=== PATIENT | male | born 1980 | race American Indian/Alaskan Native ===

== ENCOUNTER 2020-12-08 09:33 | Outpatient (REF) | payer BC, SELFPAY ==
[2020-12-08 10:17] LABS: MANUAL DIFF FLAG NO
[2020-12-08 10:36] LABS: Basophils Percent Auto 0.4 % (0-2); Eosinophils Absolute Auto 0.1 X10*3/uL (0.0-0.4); Eosinophils Percent Auto 1.4 % (0-4); Hematocrit 48.1 % (42-52); Hemoglobin 16.1 g/dl (14.0-18.0); Imm Gran Abs Auto 0.02 X10*3/uL (0.00-0.03); Imm Gran Pct Auto 0.4 % (0.0-0.4); Lymphocytes Absolute Auto 2.2 X10*3/uL (1.2-4.9); Lymphocytes Percent Auto 39.1 % (20-40); Mean Corpuscular HGB Conc 33.5 g/dl (31.0-36.0); Mean Corpuscular Hemoglobin 28.6 pg (27.0-33.0); Mean Corpuscular Volume 85.6 fL (80-98); Monocytes Absolute Auto 0.5 X10*3/uL (0.1-1.2); Monocytes Percent Auto 8.4 % (2-11); Neutrophils Absolute Auto 2.9 X10*3/uL (2.0-8.3); Neutrophils Percent Auto 50.3 % (45-73); Platelet Count 244 X10*3/uL (160-400); Red Blood Count 5.62 X10*6/uL (4.60-5.80); Red Cell Distribution Width 12.7 % (11.0-16.0); White Blood Count 5.7 X10*3/uL (4.8-10.8)
[2020-12-08 10:50] LABS: Alanine Aminotransferase 32 U/L (0-40); Albumin Level 4.6 g/dL (3.5-5.0); Alkaline Phosphatase 88 U/L (39-117); Anion Gap 8 (12-20); Aspartate Amino Transferase 24 U/L (5-37); Bilirubin Total 0.7 mg/dL (0.0-1.0); Blood Urea Nitrogen 18 mg/dL (9-16); Carbon Dioxide 30 mmol/L (22-29); Chloride 104 mmol/L (96-108); Cholesterol 206 mg/dL; Estimated Glomerular Filt Rate > 60; Glucose Random 97 mg/dL (60-115); HDL Cholesterol 41 mg/dL; LDL Cholesterol Calculated 108 mg/dl; Potassium 4.3 mmol/l (3.3-5.1); Sodium 138 mmol/L (135-145); Total Protein 7.4 g/dL (6.5-8.0); Triglycerides 285 mg/dL
[2020-12-08 11:14] LABS: Thyroid Stimulating Hormone 2.51 uIU/mL (0.32-4.0)
== END 2020-12-08 09:34 | disposition home or self-care (01) ==
LOC: HO.LAB 09:33
PROVIDERS: PCP Internal Medicine; Visit Provider Internal Medicine
DX: Z00.00 Encounter for general adult medical examination without abnormal findings (principal); E03.8 Other specified hypothyroidism; E78.2 Mixed hyperlipidemia; M54.5 Low back pain
CPT/HCPCS: 36415; 80053; 80061; 84443; 85025

== ENCOUNTER 2021-07-24 09:24 | Outpatient (REF) | payer BC, SELFPAY ==
[2021-07-24 10:31] LABS: Alanine Aminotransferase 29 U/L (0-40); Albumin Level 4.2 g/dL (3.5-5.0); Alkaline Phosphatase 83 U/L (39-117); Anion Gap 11 (12-20); Aspartate Amino Transferase 23 U/L (5-37); Bilirubin Total 0.9 mg/dL (0.0-1.0); Blood Urea Nitrogen 14 mg/dL (9-16); Calcium 8.9 mg/dL (8.4-10.2); Carbon Dioxide 28 mmol/L (22-29); Chloride 104 mmol/L (96-108); Cholesterol 188 mg/dL; Estimated Glomerular Filt Rate > 60; Glucose Random 99 mg/dL (60-115); HDL Cholesterol 37 mg/dL; LDL Cholesterol Calculated 104 mg/dl; Potassium 3.9 mmol/L (3.3-5.1); Sodium 139 mmol/L (135-145); Total Protein 6.8 g/dL (6.5-8.0); Triglycerides 238 mg/dL
[2021-07-24 10:51] LABS: Thyroid Stimulating Hormone 2.71 uIU/mL (0.32-4.0)
== END 2021-07-24 09:25 | disposition home or self-care (01) ==
LOC: HO.LAB 09:24
PROVIDERS: PCP Internal Medicine; Visit Provider Internal Medicine
DX: E03.8 Other specified hypothyroidism (principal); E78.2 Mixed hyperlipidemia; M54.5 Low back pain; M62.81 Muscle weakness (generalized)
CPT/HCPCS: 36415; 80053; 80061; 84443

== ENCOUNTER 2021-10-16 15:17 | Outpatient (REF) | payer BC, OTHER, SELFPAY ==
[2021-10-16 16:58] LABS: Vitamin B12 801 pg/mL (200-900)
[2021-10-21 12:22] LABS: Testosterone, Total 747 ng/dL (250-1100)
== END 2021-10-16 15:18 | disposition home or self-care (01) ==
LOC: HO.LAB 15:17
PROVIDERS: PCP Internal Medicine; Visit Provider Internal Medicine
DX: E78.1 Pure hyperglyceridemia (principal); G56.03 Carpal tunnel syndrome, bilateral upper limbs; N52.9 Male erectile dysfunction, unspecified
CPT/HCPCS: 36415; 82607; 84403

== ENCOUNTER 2021-11-07 10:03 | Outpatient (REF) | payer BC, OTHER, SELFPAY ==
[2021-11-07 11:57] LABS: COVID-19 Test Negative (Negative)
== END 2021-11-07 10:04 | disposition home or self-care (01) ==
LOC: HO.LAB 10:03
PROVIDERS: Visit Provider Internal Medicine
DX: Z20.822 Contact with and (suspected) exposure to COVID-19 (principal)
CPT/HCPCS: 36415; 87635; C9803

== ENCOUNTER 2022-08-27 16:28 | Outpatient (REF) | payer OTHER, SELFPAY ==
[2022-08-27 16:36] LABS: MANUAL DIFF FLAG NO
[2022-08-27 17:21] LABS: Basophils Percent Auto 0.5 % (0-2); Eosinophils Absolute Auto 0.1 X10*3/uL (0.0-0.4); Eosinophils Percent Auto 1.5 % (0-4); Hematocrit 42.3 % (42.0-52.0); Hemoglobin 15.1 g/dl (14.0-18.0); Imm Gran Abs Auto 0.01 X10*3/uL (0.00-0.03); Imm Gran Pct Auto 0.2 % (0.0-0.4); Lymphocytes Percent Auto 33.2 % (20-40); Mean Corpuscular HGB Conc 35.7 g/dl (31.0-36.0); Mean Corpuscular Hemoglobin 29.6 pg (27.0-33.0); Mean Corpuscular Volume 82.9 fL (80.0-98.0); Mean Platelet Volume 11.3 fL (9.4-12.4); Monocytes Absolute Auto 0.5 X10*3/uL (0.1-1.2); Monocytes Percent Auto 8.8 % (2-11); Neutrophils Absolute Auto 3.3 x10*3/uL (2.0-8.3); Neutrophils Percent Auto 55.8 % (45-73); Platelet Count 239 X10*3/uL (160-400); Red Cell Distribution Width 12.7 % (11.0-16.0); White Blood Count 5.9 X10*3/uL (4.8-10.8)
[2022-08-27 18:15] LABS: Alanine Aminotransferase 24 U/L (0-40); Albumin Level 4.4 g/dL (3.5-5.0); Alkaline Phosphatase 101 U/L (39-117); Anion Gap 17 (12-20); Aspartate Amino Transferase 21 U/L (5-37); Bilirubin Total 0.3 mg/dL (0.0-1.0); Blood Urea Nitrogen 21 mg/dL (9-16); Carbon Dioxide 23 mmol/L (22-29); Chloride 105 mmol/L (96-108); Estimated Glomerular Filt Rate > 60; Glucose Random 81 mg/dL (60-115); Lipase 39 U/L (8-78); Potassium 4.2 mmol/L (3.3-5.1); Sodium 141 mmol/L (135-145); Total Protein 7.2 g/dL (6.5-8.0)
== END 2022-08-27 16:29 | disposition home or self-care (01) ==
LOC: HO.LAB 16:28
PROVIDERS: Visit Provider Internal Medicine
DX: Z00.00 Encounter for general adult medical examination without abnormal findings (principal); E78.1 Pure hyperglyceridemia; M25.561 Pain in right knee
CPT/HCPCS: 36415; 80053; 83690; 85025

== ENCOUNTER 2022-09-05 08:50 | Outpatient (REF) | payer OTHER, SELFPAY | END 2022-09-05 08:51 | disposition home or self-care (01) | LOC: HO.HOSX 08:50 | PROVIDERS: Visit Provider Physician Assistant | DX: Z13.89 Encounter for screening for other disorder (principal) ==

== ENCOUNTER 2022-11-29 07:31 | Outpatient (REF) | payer OTHER, SELFPAY ==
--- NOTE | ~2022-11-29 | XR_ITS ---
EXAMINATION: 1. AP STANDING VIEW OF THE KNEES. 2. RIGHT KNEE. CLINICAL INFORMATION: Pain in the right knee COMPARISON: Right knee 09/03/2022 TECHNIQUE: 1. AP standing view of both knees. 2. Right knee. 2 views FINDINGS: 1. Right knee. Minimal periarticular spurs of the femur at the medial femoral tibial joint. The femoral tibial joint space is slightly narrowed at the medial compartment relative to the lateral. The patellofemoral joint is normal. No bone erosion. No soft tissue calcification. No joint effusion. 2. Left knee. Slight narrowing of the medial femoral tibial joint. The bone spur or bone erosion. No soft tissue calcification. No joint effusion. XR/XR knee standing BI IMPRESSION: 1. Right knee. No acute abnormality. Mild degenerative change of the medial femoral tibial joint. 2. Left knee. Slight narrowing of the medial femoral tibial joint. No acute abnormality.
--- NOTE | ~2022-11-29 | XR_ITS ---
EXAMINATION: 1. AP STANDING VIEW OF THE KNEES. 2. RIGHT KNEE. CLINICAL INFORMATION: Pain in the right knee COMPARISON: Right knee 09/03/2022 TECHNIQUE: 1. AP standing view of both knees. 2. Right knee. 2 views FINDINGS: 1. Right knee. Minimal periarticular spurs of the femur at the medial femoral tibial joint. The femoral tibial joint space is slightly narrowed at the medial compartment relative to the lateral. The patellofemoral joint is normal. No bone erosion. No soft tissue calcification. No joint effusion. 2. Left knee. Slight narrowing of the medial femoral tibial joint. The bone spur or bone erosion. No soft tissue calcification. No joint effusion. XR/XR knee RT 2V IMPRESSION: 1. Right knee. No acute abnormality. Mild degenerative change of the medial femoral tibial joint. 2. Left knee. Slight narrowing of the medial femoral tibial joint. No acute abnormality.
== END 2022-11-29 07:32 | disposition home or self-care (01) ==
LOC: HO.HOSX 07:31
PROVIDERS: Visit Provider Physician Assistant
DX: M22.42 Chondromalacia patellae, left knee (principal); M22.41 Chondromalacia patellae, right knee
CPT/HCPCS: 20610; 73560; 73565; 99202; J1040

== ENCOUNTER 2023-01-02 10:00 | Outpatient (RCR) | payer OTHER, SELFPAY ==
--- NOTE | 2023-01-02 15:06 | MHC.PT.OD ---
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 Pt reports having to leave early today due to personal conflict. Pain Score and Location: Objective Flowsheet: Tests & Measures LE worse than L. Exercises Seated on upright bike for stationary AROM warmup x 10 level 3.5 Hill climb Standing mini wall squat with green band around thigh with med ball chest press combo with 2000 gram ball, TAC march with hip abduction combo x 2 sets 10R, hookying bridge with GTB x 2 sets 10R, SL hip abduction with green theraband around thigh x 2 sets 10R. Held Denise taping today due to pants not having shorts today. Would benefit from trial education for self application next visit due to report of short term relief with use. self care using roller bar for STM to quadriceps>HS> calf musculature Modalities Assessment: 01/02/23 Pt has attended 7 PT to sessions to date since start of care on 12/09/22. Pt has been initiated in open chain strengthening exercises with limited tolerance for progression towards CKC tasks (increased L medial knee joint pain reported day following not during visit). He reports previous history of medial meniscal surgery years ago and reports ongoing sx along medial joint line. Pt exhibits (+) lateral tracking of the patella of L knee and was trialed with Denise taping with some term relief reported. Pt is very challenged with a hip hinge/functional squat with posterior LOB noted. He has been educated in the benefit of improving his proximal hip/core strength to ease his knee pains and improve his dynamic stability. He has been educated in the impact of footwear and avoiding knee hyperextension on the L>R LE with special awareness of avoiding shear/twisting forces to the knee. He has been educated/encouraged to use a pad under his knee if having to kneel for any period of time. He denies catch with ROM and reports some sx with stair climbing after its already been sore. Pt reports history of R proximal HS strain as a young adult, presents with physical infarct to R lateral proximal quadriceps, and is weaker in his R>L LE proximal hip. Pt has been compliant in hip flexor/quadriceps strengthening tasks. Pt has difficulty stabilizing on his L LE and may benefit from MRI in future should sx persist upon completion of PT. His ROM on the L>R is WFL however pt's biggest complaint today is that he has ongoing sx in the medial aspect of his L knee. He has been educated that physical therapy is going to take time to build the strength (baseline sedentary lifestyle with lack of exercise regimen). Expresses goal of wanting to be able to play soccer with this children. He has been issued written HEP in effort to first address tightness psoas>quariceps regions, but also build core/hip knee strengthening. Pt very challenged with slow pace pre gait toe tap in L SLS. 12/30/22: Pt challenged with standing toe taps and stabilization on the L LE. Pt unable to hip hinge without posterior LOB. Time spent educating patient about hip hinge/ posterior squat. 12/23/22: Good stretch observed with kneeling psoas and prone quad stretch with strap. 12/16/22 Sx verbalized L medial joint line walking olimpia the office, reviewed joint protection avoidance shear forces, avoiding stress, benefit icing. Pt verbalized relief of sx post icing. Encouraged AAROM/AROM icing to tolerance. 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 Pt expressing history of previous R quad injury as a teen> later reports hx R HS strain. 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 Pt would benefit from attending skilled PT services at a frequency of 2x/week x 4 weeks to address impairments, implement HEP, and restore functional mobility tolerance to improve tolerance for dynamic activities including recreational sports play with his children. Pt denies instability or buckling of the knee but does report previous use of L knee brace and trial of taping which he stated did help him. Pt expresses history of receiving a cortisone injection (via lateral aspect of L knee) with no significant change reported. PT Plan: 2x/week x 4 weeks Short Term Goals: 1. Strength R hip abd 5/5. (IR: R 4-/5 compensation with R hip flexor.). 2. Activate strength core stabilizers by one grade IR: poor abdominal recruitment/control with ADLS/IADLS). 3. Strength hip ext to 4+/5 B. 4. Strength SLR 5/5 B. 5. Complete walk<>jog program sx </2/10 L>R Knee. Halfway Goals: 1. I HEP. 2. Demonstrate functional squat 3:3 trials with no evidence of retropulsion. (IR: losing balance backwards). 3. Jog 10 minutes with sx <2/10 L>R knee. 4. SLS 10 seconds L>R LE. Electronically signed by: Agatha Pantoja, PT, DPT
== END 2023-12-11 08:31 | disposition home or self-care (01) ==
LOC: HO.PTWFD 10:00
PROVIDERS: PCP Internal Medicine; Visit Provider Physician Assistant
DX: M22.41 Chondromalacia patellae, right knee (principal); M22.42 Chondromalacia patellae, left knee
CPT/HCPCS: 97110; 97140; 97161; 97535

== ENCOUNTER → 2023-01-13 13:22 | Outpatient (BNVA) | payer OTHER, SELFPAY | PROVIDERS: PCP Internal Medicine; Visit Provider Physician Assistant | DX: M22.41 Chondromalacia patellae, right knee (principal); M22.42 Chondromalacia patellae, left knee; M23.91 Unspecified internal derangement of right knee; M23.92 Unspecified internal derangement of left knee | CPT/HCPCS: 99212 ==

== ENCOUNTER 2023-01-28 19:34 | Outpatient (REF) | payer OTHER, SELFPAY ==
--- NOTE | ~2023-01-28 | MR_ITS ---
EXAMINATION: MR KNEE WITHOUT CONTRAST, LEFT CLINICAL INFORMATION: Chondromalacia patella. COMPARISON: Radiographs 11/05/2022, TECHNIQUE: MRI of the knee without contrast was performed using routine sequences on a high-field scanner. FINDINGS: MENISCI: Medial Meniscus: Ill-defined undersurface tearing of the posterior horn extending to the inner margin and peripheral undersurface of the meniscal body. Lateral Meniscus: Intact. LIGAMENTS: Cruciate: Intact. Collateral: Intact. EXTENSOR MECHANISM: Intact. ARTICULAR CARTILAGE/BONE: Patellofemoral Compartment: Normal. Medial Compartment: Minimal cartilage thinning and small marginal osteophytes. Lateral Compartment: Normal. JOINT FLUID AND BURSAE: Small joint effusion. MR/MR knee LT wo con IMPRESSION: 1. Ill-defined undersurface tearing of the posterior horn of the medial meniscus extending to the inner margin and peripheral undersurface of the meniscal body. 2. Mild medial compartment osteoarthritis with a small joint effusion
== END 2023-01-28 19:35 | disposition home or self-care (01) ==
LOC: HO.MRI 19:34
PROVIDERS: PCP Internal Medicine; Visit Provider Physician Assistant
DX: M22.42 Chondromalacia patellae, left knee (principal); M22.41 Chondromalacia patellae, right knee
CPT/HCPCS: 73721

== ENCOUNTER → 2023-02-17 11:36 | Outpatient (BNVA) | payer OTHER, SELFPAY | PROVIDERS: PCP Internal Medicine; Visit Provider Physician Assistant | DX: S83.242A Other tear of medial meniscus, current injury, left knee, initial encounter (principal); X58.XXXA Exposure to other specified factors, initial encounter; Y93.9 Activity, unspecified; Y92.9 Unspecified place or not applicable; Y99.8 Other external cause status; M17.12 Unilateral primary osteoarthritis, left knee; M25.462 Effusion, left knee | CPT/HCPCS: 99212 ==

== ENCOUNTER 2023-02-18 08:36 | Outpatient (REF) | payer OTHER, SELFPAY ==
[2023-02-18 09:43] LABS: Cholesterol 225 mg/dL; HDL Cholesterol 37 mg/dL; LDL Cholesterol Calculated 134 mg/dl; Triglycerides 272 mg/dL
== END 2023-02-18 08:37 | disposition home or self-care (01) ==
LOC: HO.LAB 08:36
PROVIDERS: PCP Internal Medicine; Visit Provider Internal Medicine
DX: E78.2 Mixed hyperlipidemia (principal); I10 Essential (primary) hypertension; M70.50 Other bursitis of knee, unspecified knee
CPT/HCPCS: 36415; 80061; 84443

== ENCOUNTER → 2023-04-02 13:12 | Outpatient (BNVA) | payer OTHER, SELFPAY | PROVIDERS: PCP Internal Medicine; Visit Provider Physician Assistant | DX: M22.41 Chondromalacia patellae, right knee (principal); M22.42 Chondromalacia patellae, left knee; M23.90 Unspecified internal derangement of unspecified knee; M86.9 Osteomyelitis, unspecified | CPT/HCPCS: 99212 ==

== ENCOUNTER → 2023-05-23 08:12 | Outpatient (BNVA) | payer OTHER, SELFPAY | PROVIDERS: PCP Internal Medicine; Visit Provider Physician Assistant | DX: M22.41 Chondromalacia patellae, right knee (principal); M22.42 Chondromalacia patellae, left knee; M23.90 Unspecified internal derangement of unspecified knee | CPT/HCPCS: 20610; J7323 ==

== ENCOUNTER 2023-05-30 10:54 | Outpatient (AMB) | payer OTHER, SELFPAY ==
--- NOTE | 2023-05-30 11:01 | MHC.OFFVIS ---
Intake Vital Signs 05/30/23 11:05 Height 5 ft 11 in Weight 225 lb BMI 31.4 Intake Visit Reasons: ov- Bilateral Euflexxa Injection #2 Intake Note: Igor 42 year old male who presents today for bilateral knee Euflexxa injection #2. Allergies No Known Allergies Allergy (Verified 05/30/23 11:01) HPI ov- Bilateral Euflexxa Injection #2 HPI Details Igor 42 year old male who presents today for bilateral knee Euflexxa injection #2. 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 Review of Systems Const All systems reviewed & are unremarkable except as noted in HPI and below Physical Exam Vital Signs: BMI result Body Mass Index 31.4 Const General: cooperative, healthy appearing, comfortable, no acute distress, well developed and alert Orientation/consciousness: patient oriented x3 HEENT Head: Yes normal to inspection, Yes normocephalic and Yes atraumatic Eyes General: appearance normal, both eyes and all related structures Resp Effort & Inspection: normal respiratory effort and able to speak in complete sentences Cardio Peripheral pulses: Peripheral pulses 2+ throughout Neuro General: patient oriented x3 Extrem Other: Left knee skin intact, no erythema or joint effusion. Tenderness along the medial joint line. ROM full with crepitus. Positive steinmans. No ligamentous laxity. NVI. Right knee normal to inspection. No erythema or joint effusion. He has full ROM of the knee , negative laxity or steinmans. Tenderness along the posteriod aspect of the knee along the hamstring tendon. Office Procedures Joint Injection/Drain Joint Injection/Drain Details: Hyaluronate Sodium [Euflexxa] ? 20 mg INTRAARTIC .STK-MED ONE Primary Site: right knee Secondary Site: left knee Prep: site was prepped using aseptic technique, ethochloride spray was applied and injection warnings given Injected: in the joint Approach Used: anterolateral Procedure: The patient tolerated the procedure well and there was some relief with the local anesthesia Coding 33662 - Glenohumeral/Tronchanteric Bursa/Intraarticular Procedure code (CPT) selection complete Results Reviewed Results Reviewed: 05/30/23 11:04 Hyaluronate Sodium [Euflexxa] 20 mg INTRAARTIC .STK-MED ONE Assessment & Plan Assessment & Plan (1) Osteoarthritis of knees, bilateral: Code(s): M17.0 - Bilateral primary osteoarthritis of knee (2) Internal derangement of knee: Code(s): M23.90 - Unspecified internal derangement of unspecified knee Plan They did consent to move forward with the bilateral knee Euflexxa gel injection #2, which was tolerated well. I recommended rest, ice and elevation and OTC anti-inflammatories PRN for discomfort. He will return in 1 week for injection #3 Coding Level of Care Code Procedure Only Diagnoses Osteoarthritis of knees, bilateral M17.0 Internal derangement of knee M23.90 CPT Codes Coding - Joint 7: 00210 - Glenohumeral/Tronchanteric Bursa/Intraarticular ([id number])
[2023-05-30 11:05] VITALS: BMI 31.4
== END 2023-05-30 11:37 | disposition home or self-care (01) ==
LOC: HO.HOS 10:54
PROVIDERS: PCP Internal Medicine; Visit Provider Physician Assistant
DX: M17.0 Bilateral primary osteoarthritis of knee (principal)
CPT/HCPCS: 20610

== ENCOUNTER → 2023-05-30 10:54 | Outpatient (BNVA) | payer OTHER, SELFPAY | PROVIDERS: PCP Internal Medicine; Visit Provider Physician Assistant | DX: M17.0 Bilateral primary osteoarthritis of knee (principal); M23.90 Unspecified internal derangement of unspecified knee | CPT/HCPCS: 20610 ==

== ENCOUNTER 2023-06-06 08:15 | Outpatient (AMB) | payer OTHER, SELFPAY ==
[2023-06-06 08:17] VITALS: BMI 31.4
--- NOTE | 2023-06-06 08:17 | A.OFFVIS_ITS ---
Intake Vital Signs 06/06/23 08:17 Height 5 ft 11 in Weight 225 lb BMI 31.4 Intake Visit Reasons: ov- Bilateral Euflexxa injection #3 Intake Note: Igor 42 year old male who presents today for bilateral knee Euflexxa injection #3. Allergies No Known Allergies Allergy (Verified 06/06/23 08:23) HPI ov- Bilateral Euflexxa injection #3 HPI Details 42-year-old male who returns to the office today for bilateral knee Euflexxa gel injection #3. 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 Review of Systems Const All systems reviewed & are unremarkable except as noted in HPI and below Physical Exam Vital Signs: BMI result Body Mass Index 31.4 Const General: cooperative, healthy appearing, comfortable, no acute distress, well developed and alert Orientation/consciousness: patient oriented x3 HEENT Head: Yes normal to inspection, Yes normocephalic and Yes atraumatic Eyes General: appearance normal, both eyes and all related structures Resp Effort & Inspection: normal respiratory effort and able to speak in complete sentences Cardio Peripheral pulses: Peripheral pulses 2+ throughout Neuro General: patient oriented x3 Extrem Other: Left knee skin intact, no erythema or joint effusion. Tenderness along the medial joint line. ROM full with crepitus. Positive steinmans. No ligamentous laxity. NVI. Right knee normal to inspection. No erythema or joint effusion. He has full ROM of the knee , negative laxity or steinmans. Tenderness along the posteriod aspect of the knee along the hamstring tendon. Office Procedures Joint Injection/Drain Joint Injection/Drain Details: Hyaluronate Sodium [Euflexxa] ? 20 mg INTRAARTIC .STK-MED ONE Primary Site: right knee Secondary Site: left knee Prep: site was prepped using aseptic technique, ethochloride spray was applied and injection warnings given Injected: in the joint Approach Used: anterolateral Procedure: The patient tolerated the procedure well Coding 68924 - Glenohumeral/Tronchanteric Bursa/Intraarticular Procedure code (CPT) selection complete Results Reviewed Results Reviewed: 06/06/23 08:16 Hyaluronate Sodium [Euflexxa] 20 mg INTRAARTIC .STK-MED ONE Assessment & Plan Assessment & Plan (1) Osteoarthritis of knees, bilateral: Code(s): M17.0 - Bilateral primary osteoarthritis of knee (2) Internal derangement of knee: Code(s): M23.90 - Unspecified internal derangement of unspecified knee Plan We discussed options today which include Euflexxa gel injection. They did consent to move forward with the bilateral knee Euflexxa gel injection #3, which was tolerated well. I recommended rest, ice and elevation and OTC anti- inflammatories PRN for discomfort. If symptoms persist or worsens over the next 6-8 weeks, patient will contact the office, otherwise follow-up as needed. Patient Instructions: Scribed for Nasrin Kellogg PA-C, by Ken Carlisle medical artist, on 06/06/2023 at 8:30 AM EST. I, Nasrin Kellogg PA-C, have personally reviewed and agree with the information entered by the scribe. Coding Level of Care Code Procedure Only Diagnoses Osteoarthritis of knees, bilateral M17.0 Internal derangement of knee M23.90 CPT Codes Coding - Joint 7: 89102 - Glenohumeral/Tronchanteric Bursa/Intraarticular ([id number])
== END 2023-06-06 08:40 | disposition home or self-care (01) ==
PROVIDERS: PCP Internal Medicine; Visit Provider Physician Assistant
DX: M17.0 Bilateral primary osteoarthritis of knee (principal)
CPT/HCPCS: 20610

== ENCOUNTER → 2023-06-06 08:15 | Outpatient (BNVA) | payer OTHER, SELFPAY | PROVIDERS: PCP Internal Medicine; Visit Provider Physician Assistant | DX: M17.0 Bilateral primary osteoarthritis of knee (principal); M23.90 Unspecified internal derangement of unspecified knee | CPT/HCPCS: 20610; J7323 ==

== ENCOUNTER 2023-07-28 13:06 | Outpatient (AMB) | payer OTHER, SELFPAY ==
--- NOTE | 2023-07-28 13:10 | MHC.OFFVIS ---
Intake Intake Visit Reasons: OV-Rt Knee Intake Note: Estiven is a 42 year old male who presents today for a follow up of his bilateral knee pain, he was last seen for a Euflexxa series with Nasrin on 06/06/23. Patient reports that these injections were not helpful and he would like to discuss treatment. He is now taking glucosamine. He continues to ride his stationary bike and does some stretching which seems to help. Allergies No Known Allergies Allergy (Verified 07/28/23 13:13) HPI OV-Rt Knee HPI Details 18 months of right knee pain. He has done PT and had both cortisone and TUCKER injections and continues to describe medial sided right knee pain with posterior pain. He has some lateral hip pain as well. 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 Minimal medial joint space narrowing bilateral medial compartments Assessment & Plan Assessment & Plan (1) Internal derangement of knee: Code(s): M23.90 - Unspecified internal derangement of unspecified knee Plan: MRI ordered for internal dernagement. Has not improved with PT, injections. Orders: Orders MR knee RT wo con Today M23.90 - Unspecified internal derangement of unspecified knee Coding Level of Care Code Est Pt Level 4 (68711) Diagnoses Internal derangement of knee M23.90
== END 2023-07-28 14:06 | disposition home or self-care (01) ==
PROVIDERS: PCP Internal Medicine; Visit Provider Orthopaedic Surgery
DX: M23.91 Unspecified internal derangement of right knee (principal); M23.92 Unspecified internal derangement of left knee
CPT/HCPCS: 99214

== ENCOUNTER → 2023-07-28 13:06 | Outpatient (BNVA) | payer OTHER, SELFPAY | PROVIDERS: PCP Internal Medicine; Visit Provider Orthopaedic Surgery | DX: M23.91 Unspecified internal derangement of right knee (principal) | CPT/HCPCS: 99212 ==

== ENCOUNTER 2023-08-22 08:45 | Outpatient (REF) | payer OTHER, SELFPAY ==
[2023-08-22 09:34] LABS: Alanine Aminotransferase 45 U/L (0-40); Albumin Level 4.5 g/dL (3.5-5.0); Alkaline Phosphatase 93 U/L (39-117); Anion Gap 15 (12-20); Aspartate Amino Transferase 28 U/L (5-37); Bilirubin Total 0.7 mg/dL (0.0-1.0); Blood Urea Nitrogen 16 mg/dL (9-16); Calcium 9.6 mg/dL (8.4-10.2); Carbon Dioxide 22 mmol/L (22-29); Chloride 107 mmol/L (96-108); Cholesterol 213 mg/dL (<200); Estimated Glomerular Filt Rate > 60; Glucose Random 92 mg/dL (60-115); HDL Cholesterol 38 mg/dL (>40); LDL Cholesterol Calculated 124 mg/dL (<100); Sodium 140 mmol/L (135-145); Total Protein 7.6 g/dL (6.5-8.0); Triglycerides 257 mg/dL (<150)
== END 2023-08-22 08:46 | disposition home or self-care (01) ==
LOC: HO.LAB 08:45
PROVIDERS: PCP Internal Medicine; Visit Provider Internal Medicine
DX: E78.2 Mixed hyperlipidemia (principal); H81.11 Benign paroxysmal vertigo, right ear; K59.00 Constipation, unspecified; R04.0 Epistaxis
CPT/HCPCS: 36415; 80053; 80061

== ENCOUNTER 2023-08-30 09:32 | Outpatient (REF) | payer OTHER, SELFPAY ==
--- NOTE | ~2023-08-30 | MR_ITS ---
EXAMINATION: MR KNEE WITHOUT CONTRAST, RIGHT CLINICAL INFORMATION: Unspecified internal derangement of the knee. Medial pain. COMPARISON: 11/29/2022 (radiographs). TECHNIQUE: MRI of the knee without contrast was performed using routine sequences on a high-field scanner. FINDINGS: MENISCI: Medial Meniscus: Complex tear has a dominant oblique radial component at the junction of the posterior horn and body which extends through the majority of the meniscal cross-section, sparing a thin band of peripheral, femoral-sided fibers. Vertical and horizontal components of the tear propagate into the posterior horn. A 1.3 cm meniscal flap at the posterior root is displaced proximally along the medial margin of the PCL. No significant meniscal extrusion. Lateral Meniscus: A complex tear of the posterior horn and body has a dominant displaced horizontal undersurface flap fragment at the posterior horn measuring 1.4 x 0.8 cm periphery of the posterior horn, flipped posteriorly under the posterior horn. Meniscal body is partially extruded with an oblique radial component of the tear at the body. LIGAMENTS: Cruciate: Intact. Collateral: Edema signal around the MCL is likely reactive to the underlying meniscal abnormality. Collateral ligaments are intact. EXTENSOR MECHANISM: Intact. ARTICULAR CARTILAGE/BONE: Patellofemoral Compartment: Small partial-thickness chondral fissures are present at the median ridge of the patella and the medial facet. No chondral defects. Trochlear cartilage appears normal. Medial Compartment: Small marginal osteophytes. Articular cartilage appears normal. Lateral Compartment: Small marginal osteophytes. Mild chondral thinning at the posterior non-weightbearing surface of the lateral femoral condyle with a small chondral fissure. Mild chondral thinning of the lateral tibial plateau posteriorly. JOINT FLUID AND BURSAE: Small joint effusion. No Ashley's cyst. MR/MR knee RT wo con IMPRESSION: 1. Complex tears of both the medial and lateral menisci with radial and displaced flap fragments. 2. Minimal arthrosis in the lateral and patellofemoral compartments. 3. Small joint effusion.
== END 2023-08-30 09:33 | disposition home or self-care (01) ==
LOC: HO.MRI 09:32
PROVIDERS: PCP Internal Medicine; Visit Provider Orthopaedic Surgery
DX: M23.91 Unspecified internal derangement of right knee (principal)
CPT/HCPCS: 73721

== ENCOUNTER 2023-09-18 09:43 | Outpatient (AMB) | payer OTHER, SELFPAY ==
[2023-09-18 09:52] VITALS: BMI 32.8
--- NOTE | 2023-09-18 09:52 | MHC.OFFVIS ---
Intake Vital Signs 09/18/23 09:52 Height 5 ft 11 in Weight 235 lb BMI 32.8 Intake Visit Reasons: OV - Right Knee MRI Review Intake Note: Estiven is a 42 year old male who presents today for an MRI review of the right knee. Has tried and failed PT & Injections, Last injection 06/06/23. Patient reports that the shoulder is feeling some releif as he was taking some glucosamine which he feels has drcreased some inflammation Allergies No Known Allergies Allergy (Verified 07/28/23 13:13) HPI OV - Right Knee MRI Review HPI Details Estiven is a 42 year old man who presents for an MRI review of his right knee. He continues to complain of pain primarily with twisting activities, and says he is unable to play soccer with his kids. he denies any pain with walking or using stairs. His pain is localized to the medial aspect, with some posterior pain. He has found no relief from PT or injections, but he has been taking Glucosamine recently and things this has helped his inflammation. 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 Review of Systems Const All systems reviewed & are unremarkable except as noted in HPI and below Physical Exam Vital Signs: BMI result Body Mass Index 32.8 Const General: no acute distress, alert and awake Orientation/consciousness: patient oriented x3 HEENT Head: Yes normocephalic and Yes atraumatic Eyes EOM: EOMs intact bilaterally Resp Effort & Inspection: normal respiratory effort and able to speak in complete sentences Cardio Jugular venous distension: no JVD Skin General skin exam: turgor normal Rashes: no rashes Neuro General: patient oriented x3 Extrem Other: Right Knee: + Medial steinmans TTP medial compartment Psych Appearance: grossly normal Affect: normal affect Attitude: cooperative Results Reviewed Results Reviewed: I personally reviewed relevant MR images 1. Complex tears of both the medial and lateral menisci with radial and displaced flap fragments. 2. Minimal arthrosis in the lateral and patellofemoral compartments. 3. Small joint effusion. Assessment & Plan Assessment & Plan (1) Complex tear of meniscus of right knee: Code(s): S83.203A - Other tear of unspecified meniscus, current injury, right knee, initial encounter Plan: This is a 42 year old man with a medial & lateral meniscus tears of his right knee, with ~20 months of pain. He continues to have pain primarily with twisting motions and feels frustrated that he cannot play Soccer with his children. He has failed conservative treatment options.. I discussed his diagnosis and treatment options. I recommend surgery, and I explained this to him. He will take time to consider his options and will follow up prn. Plan Scribed for Ruddy Calderón MD by Jeferson Bowling, medical associate, on 09/18/23 at 10:15 AM, EST. Coding Level of Care Code Est Pt Level 4 (02966) Diagnoses Complex tear of meniscus of right knee S83.203A
== END 2023-09-18 10:16 | disposition home or self-care (01) ==
PROVIDERS: PCP Internal Medicine; Visit Provider Orthopaedic Surgery
DX: S83.203A Other tear of unspecified meniscus, current injury, right knee, initial encounter (principal)
CPT/HCPCS: 99214

== ENCOUNTER → 2023-09-18 09:43 | Outpatient (BNVA) | payer OTHER, SELFPAY | PROVIDERS: PCP Internal Medicine; Visit Provider Orthopaedic Surgery | DX: S83.203A Other tear of unspecified meniscus, current injury, right knee, initial encounter (principal) | CPT/HCPCS: 99212 ==

== ENCOUNTER 2023-12-25 10:44 | Outpatient (AMB) | payer OTHER, SELFPAY ==
--- NOTE | 2023-12-25 10:58 | MHC.OFFVIS ---
Intake Vital Signs 12/25/23 10:59 Height 5 ft 11 in Weight 235 lb BMI 32.8 Intake Visit Reasons: Pre Op Rt knee 01/14/24 NE Intake Note: Estiven is a 43 year old male who presents today for a pre op appointment for his Rt knee 01/14/24 NE. Allergies No Known Allergies Allergy (Verified 12/25/23 10:59) HPI Pre Op Rt knee 01/14/24 NE HPI Details 43-year-old right hand dominant male who presents in the office today for his preoperative history and physical exam prior to a right knee arthroscopy to be performed on 01/14/[address] Calderón. The patient has to navigate a lot of stairs while at home and may need crutch training for stair training in the PACU. Patient has no known allergy history. Patient is not currently taking any medication. Patient has no significant medical history. Patient has no known surgical history. 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 Review of Systems Const All systems reviewed & are unremarkable except as noted in HPI and below Physical Exam Vital Signs: BMI result Body Mass Index 32.8 Const General: no acute distress, alert and awake Orientation/consciousness: patient oriented x3 HEENT Head: Yes normocephalic and Yes atraumatic Eyes General: appearance normal, both eyes and all related structures EOM: EOMs intact bilaterally Neck Neck: Yes normal visual inspection and Yes no lymphadenopathy Resp Effort & Inspection: normal respiratory effort and able to speak in complete sentences Cardio Jugular venous distension: no JVD Rate: regular rate Peripheral pulses: Peripheral pulses 2+ throughout GI Inspection: Yes normal to inspection Palpation (GI): Soft to palpation Skin General skin exam: turgor normal Rashes: no rashes Neuro General: patient oriented x3 Extrem Other: Right Knee: Skin is clean, dry, and intact. + Medial steinmans TTP medial compartment Psych Appearance: grossly normal Mental Status: mental status grossly normal Affect: normal affect Attitude: cooperative Assessment & Plan Assessment & Plan (1) Complex tear of meniscus of right knee: Code(s): S83.203A - Other tear of unspecified meniscus, current injury, right knee, initial encounter Plan Mr. Umang Villegas is a 43-year-old right hand dominant male who presents in the office today for his preoperative history and physical exam prior to a right knee arthroscopy to be performed on 01/14/[address] Calderón. The patient has to navigate a lot of stairs while at home and may need crutch training for stair training in the PACU. Patient has no known allergy history. Patient is not currently taking any medication. Patient has no significant medical history. Patient has no known surgical history. 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 We discussed the risks, benefits and alternatives to the surgery as well as the rehabilitation course. The risks; which include, but are not limited to infection, bleeding, nerve injury, ongoing pain, swelling, and stiffness, perioperative risk of injury to bones and soft tissues, and blood clots. I have answered all questions and with their understanding they have consented to move forward with a right knee arthroscopy to be performed on 01/14/[address] Calderón. Follow up will be at the post operative appointment on 01/20/2024 at5 1:30 pm, or sooner if needed. Post operative medications was sent to the pharmacy, Hydrocodone-acetaminophen 5-325 PO Q8H PRN while in the office today. The patient was instructed that he should obtain the prescription prior to surgery but should not consume until after the procedure; as these should only be taken for post operative pain management. Should the patient take these medications prior to surgery a refill will not be sent to the pharmacy until their scheduled refill date. Medications: New hydrocodone-acetaminophen 5-325 mg Partial Fill upon patient request. 1 tab PO Q8H 7 days PRN 21 tabs 0RF pain Patient Instructions: Scribed by Ni Ewing phlebotomist medical lab assistant, for Latoya Vann PA-C on 12/25/2023 at 10:45 am, EST. Coding Level of Care Code Global (38498) Diagnoses Complex tear of meniscus of right knee S83.203A
[2023-12-25 10:59] VITALS: BMI 32.8
== END 2023-12-25 11:20 | disposition home or self-care (01) ==
PROVIDERS: PCP Internal Medicine; Visit Provider Physician Assistant
DX: S83.231A Complex tear of medial meniscus, current injury, right knee, initial encounter (principal); S83.271A Complex tear of lateral meniscus, current injury, right knee, initial encounter
CPT/HCPCS: 99024

== ENCOUNTER → 2023-12-25 10:44 | Outpatient (BNVA) | payer OTHER, SELFPAY | PROVIDERS: PCP Internal Medicine; Visit Provider Physician Assistant | DX: S83.203A Other tear of unspecified meniscus, current injury, right knee, initial encounter (principal) | CPT/HCPCS: 99212 ==

== ENCOUNTER 2024-01-14 05:57 | Day surgery (SDC) | payer OTHER, SELFPAY ==
[2024-01-09 16:25] VITALS: BMI 32.8
--- NOTE | 2024-01-13 10:10 | HO.ANESPROP2 ---
HPI - Anesthesia Eval Consult details Narrative: 43yo M for Right Knee Arthroscopy w/ possible menisectomy vs meniscal repair PMFSH Active Problems Active Problems: All Active Problems (Updated 09/18/23 @ 10:00 by Jeferson Bowling) Complex tear of meniscus of right knee (Acute) Osteoarthritis of knees, bilateral (Acute) Tear of meniscus of left knee (Acute) Internal derangement of knee (Acute) Chondromalacia of both patellae (Acute) Surgical History Surgical History H/O left knee surgery Social History Social History Patient Tobacco Use Status: Never used Tobacco Current occupational status: employed 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
[2024-01-14] VITALS (8 sets, daily range): BP systolic 115–137; BP diastolic 70–87; PULSE 67–82; RESP 12–17; TEMP 36.1–36.3; O2SAT 95–98
[2024-01-14] MEDS: Lactated Ringers 1,000 ML 100 ML IVCONT (06:23)
--- NOTE | 2024-01-14 07:24 | HO.ANESPROP2 ---
FORM[facility]LY [facility], LAT[facility] Active Problems Active Problems: All Active Problems (Updated 09/18/23 @ 10:00 by Jeferson Bowling) Complex tear of meniscus of right knee (Acute) Osteoarthritis of knees, bilateral (Acute) Tear of meniscus of left knee (Acute) Internal derangement of knee (Acute) Chondromalacia of both patellae (Acute) Family History Family history of problems with anesthesia: No Surgical History Surgical History H/O left knee surgery History of Problems with Anesthesia: No Social History Social History Patient Tobacco Use Status: Never used Tobacco Use of substances other than those prescribed or required for medical reasons: No Are you DNR?: No Advance Directives: No Advance Directives Information Provided: Yes Advance Directives on File: No Recently lost weight without trying: No Eating poorly because of decreased appetite: No Nutrition Risks: No Nutritional Risk Poor oral hygiene: No Current occupational status: employed 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 Allergies Allergy/AdvReac Type Severity Reaction Status Date / Time No Known Allergies Allergy Verified 01/14/24 06:04 Active Medications: Current Medications Lactated Ringer's (Lr) 1,000 mls @ 100 mls/hr IVCONT .Q10H RAZIA Last Admin: 01/14/24 06:23 Dose: 100 mls/hr Exam Height,Weight and Vital Signs: Height 5 ft 11 in Weight 106.594 kg Last Vital Signs Temp 97.0 F 01/14/24 06:10 Pulse 71 01/14/24 06:10 Resp 15 01/14/24 06:10 BP 137/86 01/14/24 06:10 Pulse Ox 96 01/14/24 06:10 O2 Del Method Room Air 01/14/24 06:10 Airway Mallampati Class: II TM Dist: >3cm Neck ROM: Full Heart: RRR Lungs: CTA Assessment and Plan Assessment Anesthesia Assessment: Anesthesia Plan Discussed Final Anesthetic Review Family History of Problems with Anesthesia: No History of Problems with Anesthesia: No NPO: Yes ASA Class: II Final Preanesthetic Review: Meds/Allgs Chart Reviewed, Consent Obtained/Reviewed and Anes Risks/Benef Reviewed Patient Risk: Low Procedure Risk: Low Anesthetic Plan Anesthetic Plan: GA Disposition: Standard PACU
--- NOTE | 2024-01-14 07:33 | MHC.SHP ---
Pre-Procedural Eval Section A - 24 Hr Update-Section A only Date of Service: 01/14/24 The patient is an INPATIENT: No Changes since office visit: No Cold of Flu in the past 2 weeks, No New Medical Problems, No Changes in Medication and No Patient answered all questions The patient has been examined within 24 hours of the surgical procedure. The History & Physical has been completed within 30 days and I have reviewed it.: Yes Section B - Complete if H&P > 30 days Chief Complaint: Other tear of unspecified meniscus, current injury Allergies: Allergies Allergy/AdvReac Type Severity Reaction Status Date / Time No Known Allergies Allergy Verified 01/14/24 06:04 Plan I have reviewed the history and physical and performed a pertinent physical examination on my patient. No changes have occurred unless specified. Time Spent With Patient Time: Total time managing care of this patient today ____ minutes.
--- NOTE | 2024-01-14 08:24 | P.BOP_ITS ---
Brief Operative Note Date of Service: 01/14/24 Pre-op diagnosis: Right mmt Post-op diagnosis: other (1) Right MMT 2) R LMT) Procedure: Medial and lateral partial meniscectomy Surgeon: Ruddy Calderón MD Anesthesia: GETA Was an Poultry Vaccinator used for this Procedure?: No Estimated blood loss (mL): 5 Tourniquet time (min): 22 IV fluids (mL): 500 Pathology: none sent Condition: stable Disposition: PACU
--- NOTE | 2024-01-14 08:50 | HO.POSTANES ---
Post Anesthesia Evaluation Post Anesthesia Evaluation Date of Service: 01/14/24 Vital Signs: Vital Signs Temp Pulse Resp BP Pulse Ox O2 Del Method O2 Flow Rate 01/14/24 08:44 67 12 115/71 96 Nasal Cannula with ETCO2 3 01/14/24 08:39 97.3 F 69 16 123/71 95 Nasal Cannula with ETCO2 3 01/14/24 06:10 97.0 F 71 15 137/86 96 Room Air Anesthesia: General LMA Mental Status: Awake Pain Control: Satisfactory Nausea/Vomiting: None Hydration: Adequate Anesthesia-Related Issues: No Anes. Related Issues
[2024-01-14] MEDS: oxyCODONE HCl Immed Release 5 MG TABLET PO (09:16)
--- NOTE | 2024-01-14 10:41 | PC.NURSE ---
patient stated already has pain medication at home.
--- NOTE | 2024-01-16 09:30 | P.OP_ITS ---
Operative Note Operative Note Date of Service: 01/14/24 Narrative: Date of Service: 01/14/24 Pre-op diagnosis: Right mmt Post-op diagnosis: other (1) Right MMT 2) R LMT) Procedure: Medial and lateral partial meniscectomy Surgeon: Ruddy Calderón MD Anesthesia: GETA Was an Sales Enablement Specialist used for this Procedure?: No Estimated blood loss (mL): 5 Tourniquet time (min): 22 IV fluids (mL): 500 Pathology: none sent Condition: stable Disposition: PACU Procedure in detail: Patient was brought to the operating room placed supine on the arthroscopic table and prepped and draped in standard sterile fashion. A time-out was called to identify proper site proper procedure proper surgeon and IV antibiotics per weight were administered. I began by exsanguinating the limb and insufflating tourniquet to 300 mm Hg. Then made a standard anterolateral stab incision. The knee was insufflated with water and 30 degree arthroscope was placed. There was grade 1 fibrillations of the patella but overall suprapatellar pouch and the gutters were clean. I descended into the medial compartment where I made my medial portal under direct visualization. There was a complex tear of the posterior horn of the medial meniscus. There was a displacd flap tear with the middle third of the meniscus. This was unrepairable and there was a peripheral rim stable to probing. The root was intact and the tibial plateau was in good condition. I used a combination of biter shaver and cautery to remove unstable portions of the meniscus. Apporximately 30% meniscal volume was removed. Once I was satsfied with this the ACL was examined and found to be intact and the lateral compartment was then examined. There was a split tear of the body with an intact root and posterior horn. This was stable to probing. There were G1 changes of the lateral tibial plateau. I used a combination of a biter and sahver to debride the loose meniscal flaps. Once I was satisfied that the edges were stable I removed all instrumentation and closed the portals with skin glue. 25 mL of 2% Marcaine with epinephrine was injected into the joint and the surrounding soft tissues. Patient was then placed in sterile dressing extubated brought recovery room stable condition. There were no known complications.
== END 2024-01-14 10:20 | disposition home or self-care (01) ==
LOC: HO.SSS 05:58
PROVIDERS: PCP Internal Medicine; Visit Provider Orthopaedic Surgery
PROC: (CPT 29870; principal; 2024-01-14 07:30)
DX: S83.231A Complex tear of medial meniscus, current injury, right knee, initial encounter (principal); S83.281A Other tear of lateral meniscus, current injury, right knee, initial encounter; M17.11 Unilateral primary osteoarthritis, right knee; X58.XXXA Exposure to other specified factors, initial encounter; Y93.9 Activity, unspecified; Y92.9 Unspecified place or not applicable; Y99.8 Other external cause status; Z98.890 Other specified postprocedural states
CPT/HCPCS: 29880; J0171; J0690; J1100; J1885; J2250; J2405; J2704; J2795; J3010

== ENCOUNTER → 2024-01-14 05:57 | Outpatient (BNV) | payer OTHER, SELFPAY | PROVIDERS: PCP Internal Medicine; Visit Provider Orthopaedic Surgery | DX: S83.231A Complex tear of medial meniscus, current injury, right knee, initial encounter (principal); S83.281A Other tear of lateral meniscus, current injury, right knee, initial encounter | CPT/HCPCS: 29880 ==

== ENCOUNTER 2024-01-20 13:15 | Outpatient (AMB) | payer OTHER, SELFPAY ==
--- NOTE | 2024-01-20 13:17 | MHC.OFFVIS ---
Intake Intake Visit Reasons: PO Rt knee 01/14/24 NE Intake Note: Estiven is a 43 year old male who presents today for a post op appointment s/p right knee 01/14/24 NE. Patient reports he is doing good. Allergies No Known Allergies Allergy (Verified 01/20/24 13:30) HPI PO Rt knee 01/14/24 NE HPI Details 43-year-old male who presents in the office today 6 days status post right knee medial and lateral partial meniscectomy, which was performed on 01/14/[address] Calderón. 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 Feliz are intact. No surrounding erythema or drainage. No signs of infection. ROM is 10-90 degrees. Quad weakness. NVI. Assessment & Plan Assessment & Plan (1) S/P arthroscopic partial lateral meniscectomy of right knee: Onset Date: ~01/14/24 Comment: NE Code(s): Z98.890 - Other specified postprocedural states; Z87.828 - Personal history of other (healed) physical injury and trauma (2) S/P arthroscopic partial medial meniscectomy of right knee: Onset Date: ~01/14/24 Comment: NE Code(s): Z98.890 - Other specified postprocedural states; Z87.828 - Personal history of other (healed) physical injury and trauma Plan Mr. Umang Villegas is a 43-year-old male who presents in the office today 6 days status post right knee medial and lateral partial meniscectomy, which was performed on 01/14/[address] Calderón. Patient presents today still using the crutches and partial weight bearing. I encourage to patient to wean away from the use of the crutches as soon as possible to establish a normal gait pattern. His first physical therapy session is on 01/22/2024. Follow up will be in 4 weeks for a ROM check, or sooner if needed. Current pain regiment: --Hydrocodone-acetaminophen 5-325 PO Q8H PRN (12/25/2023) Patient Instructions: Scribed by Ni Ewing emergency medical technician, for Latoya Vann PA-C on 01/20/2024 at 1:17 pm, EST. Coding Level of Care Code Global (49922) Diagnoses S/P arthroscopic partial lateral meniscectomy of right knee Z98.890; Z87.828 S/P arthroscopic partial medial meniscectomy of right knee Z98.890; Z87.828
== END 2024-01-20 13:44 | disposition home or self-care (01) ==
PROVIDERS: PCP Internal Medicine; Visit Provider Physician Assistant
DX: Z98.890 Other specified postprocedural states (principal); Z87.828 Personal history of other (healed) physical injury and trauma
CPT/HCPCS: 99024

== ENCOUNTER → 2024-01-20 13:15 | Outpatient (BNVA) | payer OTHER, SELFPAY | PROVIDERS: PCP Internal Medicine; Visit Provider Physician Assistant | DX: Z98.890 Other specified postprocedural states (principal); Z87.828 Personal history of other (healed) physical injury and trauma | CPT/HCPCS: 99212 ==

== ENCOUNTER 2024-02-17 10:00 | Outpatient (RCR) | payer OTHER, SELFPAY ==
--- NOTE | 2024-02-12 15:33 | MHC.PT.OD ---
[facility] [place] Office [place] Office [place] Office [address] Denise Dowd [address] [phone] F: [phone] F: [phone] F: [phone] F: [phone] Physical Therapy Daily Note Diagnosis: Right knee referred to PT by [facility] orthopedics S/P arthroscopic partial lateral meniscectomy of right knee Z98.890; Z87.828 S/P arthroscopic partial medial meniscectomy of right knee Z98.890; Z87.828 Code(s): Z98.890 - Other specified postprocedural states; Z87.828 - Personal history of other (healed) physical injury and trauma (2) S/P arthroscopic partial medial meniscectomy of right knee: Onset Date: ~01/14/24 Date of Surgery: 01/14/24 Date of Evaluation: 01/23/24 Date of Treatment: 02/12/24 Treatments to Date: Cancellations to Date: No Shows to Date: Authorized Visits: 7 Insurance End Date: Precautions/ Contraindications:history of L meniscal surgery on L LE six years ago. Subjective: Im feeling better everyday. Pain Score and Location: Objective Flowsheet: Tests & Measures Limited tolerance for extension Poor tolerance for heel prop with ice today -5 to 105 degrees today 01/29/24 Exercises Seated on bike x 10 minutes level 2.5 (first five posterior rocking>posterior revolutions> fwd revolutions for last five minutes.). Pt able to make full revolutions seat #9. Standing mini wall squat to 45 degrees x 5 sec hold x 2 sets 10R Standing heel touch from 2 inch step x 2 set 10R, 2 inch step down forward x 2 sets 10R, review of 4 way SLR x 2 sets 10R, seated HS stretch and seated gastroc stretch x 20 sec hold x 4R each. Reapplied taping of R ITB with education re: application removal indications for use R SL for IASTM HG #9 for strumming response to increase tissue extensibility to lateral thigh/ITB. Reapplied taping of R ITB with education re: application removal indications for use Modalities Assessment: 02/12/24 Pt reports some snapping of distal lateral HS, encouraged ongoing stretching. Relief with bike. Improving AAROM flexion, has full extension. Improving quad control. Doing well. To ortho next week. 02/10/24: Pt doing better, reports doing stairs more normally. Reduction in edema, encouraged ongoing AAROM knee flexion. 02/05/24: Pt doing better overall extension ~2 degrees, AAROM full. (+) fatigue reported post session. Pt demonstrates AAROM flexion gains slowly and gradually. 02/03/24: Improving extension AAROM. Near full extension today. AAROM flexion to 110. Steri-strips remain over incision. Initiated AAROM flexion on bike today pre heel slides with good tolerance. Pt advocated to increase reps 4 way SLR.. will progress to CKC as tolerated gradually and slowly over next few sessions. 01/29/24: Pt exhibits poor tolerance for passive knee extension. AAROM flexion to 105 today. Pt educated to keep icing. 01/27/24: Near full extension today. He has D/C crutches, improving gait quality noted. AAROM flexion to 108 degrees this date. Pt is a 43 y/o male, referred to PT for treatment s/p R knee S/P arthroscopic partial lateral meniscectomy of right knee Z98.890; Z87.828, S/P arthroscopic partial medial meniscectomy of right knee Z98.890; Z87.828. Pt exhibits AROM R knee -12 to 76 degrees. Pt exhibits poor quad control and is unable to perform a SLR. He has difficulty performing a quad set. He presented to the office with use of a single cane but was ambulating with the cane on the wrong side (using it on his R). He was encouraged to continue use of a single point cane but on his left side to reduce gait deviations. He was unable to wean from use of a cane altogether at this time. Pt will benefit from attending skilled PT services at a frequency of 2x/week x 6 weeks to address impairments, implement HEP, and restore functional mobility to resume PLOF. Post initial eval he was issued a written HEP sheet including instruction for: isometric QS at 0 and 30, seated HS stretch, seated gastroc stretch, and passive knee extension stretch. He was educated re: weaning from use of weaning down std cane, proper use of std cane, gait mechanics for std cane and stairs and the benefit of icing. PT Plan: TO ortho next wek Short Term Goals: 1. AROM> AAROM R knee extension to -5 degrees. 2. AAROM> AROM R knee flexion to 110 degrees. 3. Pt will demonstrate SLR into flexion with good dynamic balance. 4. Pt will wean from use of crutches with symmetrical weight-bearing. Care Home Goals: 1. AROM R knee 0 to 120 degrees with good dynamic balance. 2. Pt will demonstrate I HEP with good dynamic balance. 3. Pt will negotiate a flight of stairs with good dynamic balance. 4. RTW with good evidence of hip hinge functional squat. Electronically signed by: Agatha Pantoja, PT, DPT
--- NOTE | 2024-02-26 12:52 | MHC.PT.OD ---
[facility] [place] Office [place] Office [place] Office [address] Denise Dowd 140 [facility] [phone] F: [phone] F: [phone] F: [phone] F: [phone] Physical Therapy Daily Note Diagnosis: Right knee referred to PT by [facility] S/P arthroscopic partial lateral meniscectomy of right knee Z98.890; Z87.828 S/P arthroscopic partial medial meniscectomy of right knee Z98.890; Z87.828 Code(s): Z98.890 - Other specified postprocedural states; Z87.828 - Personal history of other (healed) physical injury and trauma (2) S/P arthroscopic partial medial meniscectomy of right knee: Onset Date: ~01/14/24 Date of Surgery: 01/14/24 Date of Evaluation: 01/23/24 Date of Treatment: 02/26/24 Treatments to Date: Cancellations to Date: No Shows to Date: Authorized Visits: 8 Insurance End Date: Precautions/ Contraindications:history of L meniscal surgery on L LE six years ago. Subjective: I had questions for the doctor and she left before I got them answered. I called the office and left a message with them but have not heard back yet. Pain Score and Location: 6 Objective Flowsheet: Tests & Measures 02/17/24: AAROM flexion to 120, near full knee extension Limited tolerance for extension Poor tolerance for heel prop with ice today -5 to 105 degrees today 01/29/24 Exercises Seated on bike x 10 minutes level 2.5 (First five posterior rocking>posterior revolutions> fwd revolutions for last five minutes.). Pt able to make full revolutions seat #9. [facility] [address] [place] [address] Office Visit Report Signed Patient: Estiven Castillo#: [id number] : 1980Acct:[id number] Age/Sex: 43 / MADM/SER Date: 02/19/24 Loc: HO.HOSADM/SER Time:1241 Attending Provider: Latoya Vann PA-C cc: Saloni Lowery MD~ Intake Intake Visit Reasons: PO-Rt knee 01/14/24 NE Intake Note: Estiven is a 43 year old male who presents today for a ROM check s/p right knee 01/14/24 NE. Patient reports he has notice a difference in his ROM, however he tends to still have a clicking sound when he is walking. He informed me that when he is doing the exercises at home he tends to have a pulling sensation behind his knee and it radiates up to his lower back. Allergies No Known Allergies Allergy (Verified 02/19/24 12:47) HPI PO-Rt knee 01/14/24 NE HPI Details 43-year-old male who presents in the office today for a ROM check; 5 weeks status post right knee medial and lateral partial meniscectomy, which was performed on 01/14/[address] Calderón. I last saw the patient in the office on 01/20/2024. At that time he was encouraged to wean off the crutches. His first PT was scheduled for 01/22/2024. While in the office today the patient reports he has noticed a difference in his ROM. He does continue to have a clicking sound when ambulating. He claims to have a pulling sensation behind his knee when doing his at home exercises that radiates up to his lower back. 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 Full ROM with flexion and extension. No signs of infection. NVI. Assessment & Plan Assessment & Plan (1) S/P arthroscopic partial lateral meniscectomy of right knee: Onset Date: ~01/14/24 Comment: NE Code(s): Z98.890 - Other specified postprocedural states; Z87.828 - Personal history of other (healed) physical injury and trauma (2) S/P arthroscopic partial medial meniscectomy of right knee: Onset Date: ~01/14/24 Comment: NE Code(s): Z98.890 - Other specified postprocedural states; Z87.828 - Personal history of other (healed) physical injury and trauma Plan Mr. Umang Villegas is a 43-year-old male who presents in the office today for a ROM check; 5 weeks status post right knee medial and lateral partial meniscectomy, which was performed on 01/14/[address] Calderón. I last saw the patient in the office on 01/20/2024. At that time he was encouraged to wean off the crutches. His first PT was scheduled for 01/22/2024. While in the office today the patient reports he has noticed a difference in his ROM. He does continue to have a clicking sound when ambulating. He claims to have a pulling sensation behind his knee when doing his at home exercises that radiates up to his lower back. Patient plans to continue to work on his home exercise program. He would like to defer on attending formal physical therapy. Follow up will be PRN, or sooner if needed. Current pain regiment: -Hydrocodone-acetaminophen 5-325 mg PO Q8H PRN Patient Instructions: Scribed by Ni Ewing medical administrative, for Latoya Vann PA-C on 02/19/2024 at 12:42 pm, EST. Coding Level of Care Code Global (14660) Diagnoses S/P arthroscopic partial lateral meniscectomy of right knee Z98.890; Z87.828 S/P arthroscopic partial medial meniscectomy of right knee Z98.890; Z87.828 Documented By:Latoya Vann4/03/10 1242 Review of current HEP, call placed to [facility] ortho to obtain another follow appt for patient. Pt verbalizes lack of guidance for R lateral knee posterior knee sx. Therapist questions snapping HS. Office notes state patient wishes to D/C PT. Pt states he wants to find out what is causing sx and does not necessarily want to D/C pt but he feels his symptoms were worsening with progression of things like wall squats and other CKC tasks and wanted to speak with PA-C to address specific questions which were not answered during his last appt. R LE prone in extension for IASTM HG #9 for strumming response to increase tissue extensibility to lateral> medial distal HS in effort to ease tightness/pain. Review of self care for management of ITB sx. Modalities Assessment: 02/26/24: Pt presented to the office today, expressing frustration following recent follow up with orthopedics and lack of guidance with how to address current sx. Pt's AROM R knee 0 to 120. Good SLR strength. Pt has had limited tolerance for advancement in CKC due to new sx. In the past few visits, pt has been expressing what appears to be R snapping HS laterally. He has been educated in the benefits of stretching this. He has expressed concern for holding further progression as he had similar pain symptoms in the past pre-surgery with report of posterior knee pain. He does verbalize he wishes to have some specific questions addressed and answered prior to coming back to PT. He has reported knee buckling which is a concern because he was not having this symptom earlier. He does have goal of running and was advised he should not try running at this time. Pt reports intolerance for squatting and transitions from flex>ext and ext>flexion due to this new onset of catch/snapping ? HS symptom. He has been guided through HS/lateral knee/ITB stretches with limited gains. He has reported pre existing hx ITB band issues. He is weak in core stabilization and has not been able to be progressed to higher level core exercises due to snapping sx. Due to patient concerns, a call was placed to ortho to obtain another appt for patient. Pt given appt on 02/27/24 at 9:30. Please advise pt's symptoms. Pt has expresssed hx of some mild LBP however this does not appear to be limiting his R LE movements. He was not aware he was being referred to physiatry for his back (per ortho secreatary has consult ~03/25 and then another appt 03/15 for L knee. Pt also reports goal of ultimately addressing causes of his R knee pain. Therapist has shared with patient that she feels he needs to work on stretching HS, advancing core stab> hip stab along with gradual advancement in CKC. He would benefit from having his concerns addressed with his ortho provider/s at this time. He will call PT office should he wish to resume. Pt verbalizes understanding. 02/17/24: Pt AAROM flexion to 120, reports two episodes of the knee buckling over the weekend. Pt expressing posterior knee sx/ ? snapping HS with transition from knee extension to flexion. 02/12/24 Pt reports some snapping of distal lateral HS, encouraged ongoing stretching. Relief with bike. Improving AAROM flexion, has full extension. Improving quad control. Doing well. To ortho next week. 02/10/24: Pt doing better, reports doing stairs more normally. Reduction in edema, encouraged ongoing AAROM knee flexion. 02/05/24: Pt doing better overall extension ~2 degrees, AAROM full. (+) fatigue reported post session. Pt demonstrates AAROM flexion gains slowly and gradually. 02/03/24: Improving extension AAROM. Near full extension today. AAROM flexion to 110. Steri-strips remain over incision. Initiated AAROM flexion on bike today pre heel slides with good tolerance. Pt advocated to increase reps 4 way SLR.. will progress to CKC as tolerated gradually and slowly over next few sessions. 01/29/24: Pt exhibits poor tolerance for passive knee extension. AAROM flexion to 105 today. Pt educated to keep icing. 01/27/24: Near full extension today. He has D/C crutches, improving gait quality noted. AAROM flexion to 108 degrees this date. Pt is a 43 y/o male, referred to PT for treatment s/p R knee S/P arthroscopic partial lateral meniscectomy of right knee Z98.890; Z87.828, S/P arthroscopic partial medial meniscectomy of right knee Z98.890; Z87.828. Pt exhibits AROM R knee -12 to 76 degrees. Pt exhibits poor quad control and is unable to perform a SLR. He has difficulty performing a quad set. He presented to the office with use of a single cane but was ambulating with the cane on the wrong side (using it on his R). He was encouraged to continue use of a single point cane but on his left side to reduce gait deviations. He was unable to wean from use of a cane altogether at this time. Pt will benefit from attending skilled PT services at a frequency of 2x/week x 6 weeks to address impairments, implement HEP, and restore functional mobility to resume PLOF. Post initial eval he was issued a written HEP sheet including instruction for: isometric QS at 0 and 30, seated HS stretch, seated gastroc stretch, and passive knee extension stretch. He was educated re: weaning from use of weaning down std cane, proper use of std cane, gait mechanics for std cane and stairs and the benefit of icing. PT Plan: Ortho 02/27/24 9:30am. Short Term Goals: 1. AROM> AAROM R knee extension to -5 degrees. 2. AAROM> AROM R knee flexion to 110 degrees. 3. Pt will demonstrate SLR into flexion with good dynamic balance. 4. Pt will wean from use of crutches with symmetrical weight-bearing. [facility] Goals: 1. AROM R knee 0 to 120 degrees with good dynamic balance. 2. Pt will demonstrate I HEP with good dynamic balance. 3. Pt will negotiate a flight of stairs with good dynamic balance. 4. RTW with good evidence of hip hinge functional squat. Electronically signed by: Agatha Pantoja, PT, DPT
== END 2024-04-23 09:28 | disposition home or self-care (01) ==
LOC: HO.PTWFD 10:00
PROVIDERS: PCP Internal Medicine; Visit Provider Orthopaedic Surgery
DX: Z98.890 Other specified postprocedural states (principal)
CPT/HCPCS: 97110; 97140; 97161; 97530

== ENCOUNTER 2024-02-19 12:41 | Outpatient (AMB) | payer OTHER, SELFPAY ==
--- NOTE | 2024-02-19 12:42 | A.OFFVIS_ITS ---
Intake Intake Visit Reasons: PO-Rt knee 01/14/24 NE Intake Note: Estiven is a 43 year old male who presents today for a ROM check s/p right knee 01/14/24 NE. Patient reports he has notice a difference in his ROM, however he tends to still have a clicking sound when he is walking. He informed me that when he is doing the exercises at home he tends to have a pulling sensation behind his knee and it radiates up to his lower back. Allergies No Known Allergies Allergy (Verified 02/19/24 12:47) HPI PO-Rt knee 01/14/24 NE HPI Details 43-year-old male who presents in the off ice today for a ROM check; 5 weeks status post right knee medial and lateral partial meniscectomy, which was performed on 01/14/[address] Calderón. I last saw the patient in the office on 01/20/2024. At that time he was encouraged to wean off the crutches. His first PT was scheduled for 01/22/2024. While in the office today the patient reports he has noticed a difference in his ROM. He does continue to have a clicking sound when ambulating. He claims to have a pulling sensation behind his knee when doing his at home exercises that radiates up to his lower back. 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 Full ROM with flexion and extension. No signs of infection. NVI. Assessment & Plan Assessment & Plan (1) S/P arthroscopic partial lateral meniscectomy of right knee: Onset Date: ~01/14/24 Comment: NE Code(s): Z98.890 - Other specified postprocedural states; Z87.828 - Personal history of other (healed) physical injury and trauma (2) S/P arthroscopic partial medial meniscectomy of right knee: Onset Date: ~01/14/24 Comment: NE Code(s): Z98.890 - Other specified postprocedural states; Z87.828 - Personal history of other (healed) physical injury and trauma Plan Mr. Umang Villegas is a 43-year-old male who presents in the office today for a ROM check; 5 weeks status post right knee medial and lateral partial meniscectomy, which was performed on 01/14/[address] Calderón. I last saw the patient in the office on 01/20/2024. At that time he was encouraged to wean off the crutches. His first PT was scheduled for 01/22/2024. While in the office today the patient reports he has noticed a difference in his ROM. He does continue to have a clicking sound when ambulating. He claims to have a pulling sensation behind his knee when doing his at home exercises that radiates up to his lower back. Patient plans to continue to work on his home exercise program. He would like to defer on attending formal physical therapy. Follow up will be PRN, or sooner if needed. Current pain regiment: -Hydrocodone-acetaminophen 5-325 mg PO Q8H PRN Patient Instructions: Scribed by Ni Ewing medical records technician, for Latoya Vann PA-C on 02/19/2024 at 12:42 pm, EST. Coding Level of Care Code Global (46506) Diagnoses S/P arthroscopic partial lateral meniscectomy of right knee Z98.890; Z87.828 S/P arthroscopic partial medial meniscectomy of right knee Z98.890; Z87.828
== END 2024-02-19 13:15 | disposition home or self-care (01) ==
PROVIDERS: PCP Internal Medicine; Visit Provider Physician Assistant
DX: Z98.890 Other specified postprocedural states (principal); Z87.828 Personal history of other (healed) physical injury and trauma
CPT/HCPCS: 99024

== ENCOUNTER → 2024-02-19 12:41 | Outpatient (BNVA) | payer OTHER, SELFPAY | PROVIDERS: PCP Internal Medicine; Visit Provider Physician Assistant | DX: Z98.890 Other specified postprocedural states (principal); Z87.828 Personal history of other (healed) physical injury and trauma | CPT/HCPCS: 99212 ==

== ENCOUNTER 2024-02-21 09:30 | Outpatient (REF) | payer OTHER, SELFPAY ==
[2024-02-21 11:28] LABS: Alanine Aminotransferase 34 U/L (0-40); Albumin Level 4.3 g/dL (3.5-5.0); Alkaline Phosphatase 94 U/L (39-117); Anion Gap 9 (12-20); Aspartate Amino Transferase 24 U/L (5-37); Blood Urea Nitrogen 16 mg/dL (9-16); Calcium 9.2 mg/dL (8.4-10.2); Carbon Dioxide 28 mmol/L (22-29); Chloride 107 mmol/L (96-108); Cholesterol 209 mg/dL (<200); Estimated Glomerular Filt Rate > 60; Glucose Random 95 mg/dL (60-115); HDL Cholesterol 38 mg/dL (>40); LDL Cholesterol Calculated 130 mg/dL (<100); Potassium 4.1 mmol/L (3.3-5.1); Sodium 140 mmol/L (135-145); Total Protein 7.6 g/dL (6.5-8.0); Triglycerides 209 mg/dL (<150)
[2024-02-21 11:34] LABS: Thyroid Stimulating Hormone 2.96 uIU/mL (0.32-4.0)
== END 2024-02-21 09:31 | disposition home or self-care (01) ==
LOC: HO.LAB 09:30
PROVIDERS: PCP Internal Medicine; Visit Provider Internal Medicine
DX: Z00.00 Encounter for general adult medical examination without abnormal findings (principal); E78.2 Mixed hyperlipidemia; I10 Essential (primary) hypertension; M23.92 Unspecified internal derangement of left knee
CPT/HCPCS: 36415; 80053; 80061; 84443

== ENCOUNTER 2024-02-27 09:22 | Outpatient (AMB) | payer OTHER, SELFPAY ==
--- NOTE | 2024-02-27 09:32 | A.OFFVIS_ITS ---
Intake Intake Visit Reasons: PO-Rt knee 01/14/24 NE Intake Note: Estiven is a 43 year old male who presents today for his s/p right knee 01/14/24 NE. States he is having clicking in knee, locks when walking and feels like it will give out. He is not able to fully extend his leg/knee with out having increase of pain. Allergies No Known Allergies Allergy (Verified 02/19/24 12:47) HPI PO-Rt knee 01/14/24 NE HPI Details 43-year-old male who returns to the [facility] today for post-op right knee , 01/14/[address] Calderón. He states he has improvement in his pain however he does experiences clicking and sharp pain in his knee with extension. He is unable to fully extend his leg due to the pain. He also c/o locking and knee giving out with ambulation. He denies any swelling. He has tried icing for his knee pain. He has been working with physical therapy as instructed. 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 Incision well healed. No erythema or drainage. ROM is 0-120 degrees. He does have some crepitus on exam. Mild tenderness along the IT band. Mild discomfort with hip abduction and adduction against resistance. NVI. Assessment & Plan Assessment & Plan (1) S/P arthroscopic partial medial meniscectomy of right knee: Onset Date: ~01/14/24 Comment: NE Code(s): Z98.890 - Other specified postprocedural states; Z87.828 - Personal history of other (healed) physical injury and trauma (2) S/P arthroscopic partial lateral meniscectomy of right knee: Onset Date: ~01/14/24 Comment: NE Code(s): Z98.890 - Other specified postprocedural states; Z87.828 - Personal history of other (healed) physical injury and trauma (3) Patellofemoral arthritis of right knee: Code(s): M17.11 - Unilateral primary osteoarthritis, right knee Plan We had a discussion on the operative findings which demonstrates some OA around the kneecap and lateral femoral condyle which is consistent with his symptoms. I did stress the importance of working with physical therapy for quad/hip/glute and hamstring strength and improve his mobility. He will avoid high impact activities for the next 4 weeks. I also gave him a prescription of Celebrex to take twice a day for 2 weeks to help with acute flareups. He will see me back as needed. Medications: New celecoxib (Celebrex) 200 mg PO BID 60 caps 3RF 30 days Patient Instructions: Scribed for Nasrin Kellogg PA-C, by Ken Carlisle medical laboratory manager, on 02/27/2024 at 9:30 AM EST. INasrin PA-C, have personally reviewed and agree with the information entered by the scribe. Coding Level of Care Code Global (98051) Diagnoses S/P arthroscopic partial medial meniscectomy of right knee Z98.890; Z87.828 S/P arthroscopic partial lateral meniscectomy of right knee Z98.890; Z87.828 Patellofemoral arthritis of right knee M17.11
== END 2024-02-27 10:49 | disposition home or self-care (01) ==
PROVIDERS: PCP Internal Medicine; Visit Provider Physician Assistant
DX: Z98.890 Other specified postprocedural states (principal); Z87.828 Personal history of other (healed) physical injury and trauma; M17.11 Unilateral primary osteoarthritis, right knee
CPT/HCPCS: 99024

== ENCOUNTER → 2024-02-27 09:22 | Outpatient (BNVA) | payer OTHER, SELFPAY | PROVIDERS: PCP Internal Medicine; Visit Provider Physician Assistant | DX: M17.11 Unilateral primary osteoarthritis, right knee (principal); Z98.890 Other specified postprocedural states; Z87.828 Personal history of other (healed) physical injury and trauma | CPT/HCPCS: 99212 ==

== ENCOUNTER 2024-03-25 11:27 | Outpatient (AMB) | payer OTHER, SELFPAY ==
--- NOTE | 2024-03-25 11:30 | MHC.OFFVIS ---
Vital Signs 03/25/24 11:33 Height 5 ft 11 in Intake Visit Reasons: New Pt -Left spine eval Intake Note: This is a 43 year old male who presents for pain in his lower back and right sided hip, back and leg pain. He had surgery in December of 2023 Medial and lateral partial meniscectomy. He has worked with physical therapy and still feels the pain. He feels it a lot at night. Allergies No Known Allergies Allergy (Verified 03/25/24 11:32) Medication List - Last Reconciled 03/25/24 by Emili Mejía RN celecoxib (Celebrex) 200 mg PO BID 30 days hydrocodone-acetaminophen 5-325 mg 1 tab PO Q8H PRN 7 days HPI Comments Details: Post-op right knee , 01/14/[address] Calderón. Admits to chronic recurrent back pain, which he attributes to lifting or bending. Could happen daily with activities. Pain has been there. But now, what he is complaining of his tightness on lateral thigh. He feels that they fixed the knee but still has issues on lateral calf and thigh . Before surgery, unable to flex knee; now after surgery when he extends the knee, he feels clicking inside the knee. Again he is saying that this sensation from the back pain. He had done PT. Ice, bicycle. Doesn't think it was focused enough to where his issues are. 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 Patient was appropriately conversant and oriented. Good historian. MSK: No specific abnormalities found on inspection of the spine and all extremities. No pain with palpation over the lumbar area. Tender on right SI joint, less tender on left SI joint. Tender piriformis, greater trochanter and ITB band, right. Lumbar ROM was full. Bilateral hip, knee and ankle ROM WNL. No ligamentous laxity or crepitance. No increased effusion. Straight-leg raising test negative. FABERE test positive right. No warmth or redness in right knee, but some mild effusion medial joint line. Full right knee range of motion, no extension lag. Strength is 5/5 in all muscle groups tested. No increased tone noted. Neurological: Neurologic examination of the upper and lower extremities was nonfocal with intact sensation, muscle stretch reflexes and without focal motor deficits . Hu?s negative bilaterally. Babinski was down going bilaterally. Clonus was negative. Gait is non-antalgic without loss of balance. Results Reviewed Results Reviewed: I reviewed records from the following: Ortho Assessment & Plan Assessment & Plan (1) Trochanteric bursitis, right hip: Code(s): M70.61 - Trochanteric bursitis, right hip Category: Medical (2) Iliotibial band syndrome, right leg: Code(s): M76.31 - Iliotibial band syndrome, right leg Category: Medical (3) Pain of both sacroiliac joints: Code(s): M53.3 - Sacrococcygeal disorders, not elsewhere classified Category: Medical Plan Presenting with pain on right ITB band, greater trochanter and both SI joints. Referring patient to PT to work on bilateral SI joint, ITB right; do myofascial release; gradual strengthening, within pain free limits. He has an exercise roller at home which he can use to stretch out ITB. For completeness, we will send him for lumbar and hip x-rays. Assessment and plan discussed with patient, and patient was agreeable. All questions were answered thoroughly. Follow up 3 months. Louise Dorman MD, GILDA Board Certified, [place] Board [employer] and Rehabilitation (ABPMR) Board Certified, [place] Board [employer] Electrodiagnostic Medicine (ABEM) Orders: Orders XR lumbar spine 2-3V Today M54.9 - Dorsalgia, unspecified XR hip RT min 2V Today M25.551 - Pain in right hip PT Evaluation and Treatment Today M53.3 - Sacrococcygeal disorders, not elsewhere classified, M70.61 - Trochanteric bursitis, right hip, M76.31 - Iliotibial band syndrome, right leg Coding Level of Care Code New Pt Level 4 (28563) Diagnoses Trochanteric bursitis, right hip M70.61 Iliotibial band syndrome, right leg M76.31 Pain of both sacroiliac joints M53.3
== END 2024-03-25 14:32 | disposition home or self-care (01) ==
LOC: HO.HOS 11:27
PROVIDERS: PCP Internal Medicine; Visit Provider Physical Medicine & Rehabilitation
DX: M70.61 Trochanteric bursitis, right hip (principal); M76.31 Iliotibial band syndrome, right leg; M53.3 Sacrococcygeal disorders, not elsewhere classified
CPT/HCPCS: 99213

== ENCOUNTER 2024-03-25 11:27 | Outpatient (REF) | payer OTHER, SELFPAY ==
--- NOTE | ~2024-03-25 | XR_ITS ---
EXAMINATION: XR HIP, RIGHT XR LUMBAR SPINE CLINICAL INFORMATION: Pain in right hip and back. COMPARISON: None available. TECHNIQUE: 3 views lumbar spine. 2 views right hip. FINDINGS: Lumbar Spine: Mild dextroscoliosis of the lumbar spine. Facet arthritis in the jro-sf-fmqry lumbar spine. Mild multilevel lumbar spondylosis with mild loss of disc space height at L5-S1. Right Hip: Right hip joint alignment is preserved. Mild degenerative changes with hypertrophic change and joint space narrowing. Dense linear calcification in the soft tissues along the inferolateral aspect of the right iliac wing with possible irregularity and sclerosis along with subjacent iliac/acetabular bone. Correlation with physical exam and possible additional imaging with MRI could be considered. XR/XR lumbar spine 2-3V IMPRESSION: 1. Mild degenerative changes in the right hip. 2. Mild multilevel lumbar spondylosis with mild loss of disc space height at L5-S1. 3. Facet arthritis in the hkl-kj-gezui lumbar spine. 4. Dense linear calcification in the soft tissues along the inferolateral aspect of the right iliac wing with possible irregularity and sclerosis along with subjacent iliac/acetabular bone. 5. Correlation with physical exam and possible additional imaging with MRI could be considered.
--- NOTE | ~2024-03-25 | XR_ITS ---
EXAMINATION: XR HIP, RIGHT XR LUMBAR SPINE CLINICAL INFORMATION: Pain in right hip and back. COMPARISON: None available. TECHNIQUE: 3 views lumbar spine. 2 views right hip. FINDINGS: Lumbar Spine: Mild dextroscoliosis of the lumbar spine. Facet arthritis in the vto-oh-zjhuo lumbar spine. Mild multilevel lumbar spondylosis with mild loss of disc space height at L5-S1. Right Hip: Right hip joint alignment is preserved. Mild degenerative changes with hypertrophic change and joint space narrowing. Dense linear calcification in the soft tissues along the inferolateral aspect of the right iliac wing with possible irregularity and sclerosis along with subjacent iliac/acetabular bone. Correlation with physical exam and possible additional imaging with MRI could be considered. XR/XR hip RT min 2V IMPRESSION: 1. Mild degenerative changes in the right hip. 2. Mild multilevel lumbar spondylosis with mild loss of disc space height at L5-S1. 3. Facet arthritis in the npy-xq-opzjo lumbar spine. 4. Dense linear calcification in the soft tissues along the inferolateral aspect of the right iliac wing with possible irregularity and sclerosis along with subjacent iliac/acetabular bone. 5. Correlation with physical exam and possible additional imaging with MRI could be considered.
== END 2024-03-25 11:28 | disposition home or self-care (01) ==
LOC: HO.HOSX 11:27
PROVIDERS: PCP Internal Medicine; Visit Provider Physical Medicine & Rehabilitation
DX: M54.9 Dorsalgia, unspecified (principal); M25.551 Pain in right hip; M70.61 Trochanteric bursitis, right hip; M76.31 Iliotibial band syndrome, right leg; M53.3 Sacrococcygeal disorders, not elsewhere classified
CPT/HCPCS: 72100; 73502; 99212

== ENCOUNTER 2024-05-31 12:00 | Outpatient (RCR) | payer OTHER, SELFPAY ==
--- NOTE | 2024-04-21 13:59 | MHC.PT.EP ---
[facility] [place] Office [place] Office [place] Office [address] Denise Dowd [address] [phone] F: [phone] F: [phone] F: [phone] F: [phone] Physical Therapy Plan of Care Date of Evaluation: 04/21/24 Date of Surgery: Diagnosis: trochanteric bursitis, ITB, SI disorders Assessment: 43 y/o male referred to PT with trochanteric bursitis, ITB, SI disorders. Of note, he recently had R partial meniscectomy 01/14/24 with 8 visits of PT which did not fully resolve sx and other sx appeared with more activity. Currently he presents with lumbar derangement and B knee pain resulting in pain and difficulty with playing with his kids, standing prolonged periods, walking, running, squatting, and playing soccer. Examination shows decreased functional strength as seen with poor single limb balance and squatting, decreased R knee ROM (slightly limited compared to L), decreased ITB/ quad length, and impaired gait pattern. Recommend PT 2x/week for 6 weeks to address impairments, implement HEP, and optimize functional mobility. Frequency and Duration: The patient will be seen 2x/week for 6 weeks Short Term Goals: 3 weeks I with HEP Pt will demonstrate R single limb balance to 30 seconds Mcfp Goals: 6 weeks I with HEP and self management of sx Improve LEFS to 50/80 Pt will be able to ambulate > 60 minutes with pain < 3/10 Treatment Plan: Modalities to reduce pain, spasms and effusion. Manual therapy to restore motion and function. Therapeutic exercise to improve strength and flexibility. Neuromuscular re-education for posture and balance. Therapeutic activities to return to functional activities of daily living. Electronically signed by: Katie Carlos PT Please sign and return to therapist. Thank you for your referral.
--- NOTE | 2024-07-27 08:21 | MHC.PT.DC ---
[facility] [place] Office [place] Office [place] Office [address] Denise Dowd [address] [facility] [phone] F: [phone] F: [phone] F: [phone] F: [phone] Physical Therapy Discharge Report Diagnosis: trochanteric bursitis, ITB, SI disorders Date of Surgery: Date of Evaluation: 04/21/24 Date of Discharge: 07/27/24 Treatments to Date: 11 Cancellations to Date: 2 No Shows to Date: 1 Discharge Status: Improved Function Independent with HEP Discharge Summary: Pt has made gains in strength and functional mobility. He still will have intermittent knee pain at time limiting his mobility at times. At this time, d/c to I HEP. Electronically signed by: Katie Carlos PT Please sign and return to therapist. Thank you for your referral.
== END 2024-07-27 08:22 | disposition home or self-care (01) ==
LOC: HO.PT 12:00
PROVIDERS: PCP Internal Medicine; Visit Provider Physical Medicine & Rehabilitation
DX: M70.61 Trochanteric bursitis, right hip (principal); M76.31 Iliotibial band syndrome, right leg; M53.3 Sacrococcygeal disorders, not elsewhere classified
CPT/HCPCS: 97110; 97140; 97161; 97530

== ENCOUNTER 2024-06-18 11:20 | Outpatient (AMB) | payer OTHER, SELFPAY ==
--- NOTE | 2024-06-18 11:29 | A.OFFVIS_ITS ---
Intake Visit Reasons: OV - Left knee, discuss Intake Note: Estiven is a 43 year old male who presents today for a follow up of his left knee. He had an MRI done of this knee in 2022 and surgical intervention, Left Knee was recommended. Allergies No Known Allergies Allergy (Verified 06/18/24 11:30) HPI HPI OV - Left knee, discuss : Details: Estiven is a 43 year old male who presents today for a follow up of his left knee. He had an MRI done of this knee in 2022 and surgical intervention, Left Knee was recommended. He continues to have discomfort with daily activity. He can not return to his normal level of function. He describes sharp medial-sided knee pain. If he does not do anything for a couple of weeks it is okay and then this is he starts activity it gets worse. Is MRI showed a medial meniscus tear. He had a similar injury on the contralateral knee and he did well after surgery. 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 Physical Exam Const General: no acute distress, alert and awake Orientation/consciousness: patient oriented x3 HEENT Head: Yes normocephalic and Yes atraumatic Eyes EOM: EOMs intact bilaterally Resp Effort & Inspection: normal respiratory effort and able to speak in complete sentences Cardio Jugular venous distension: no JVD Skin General skin exam: turgor normal Rashes: no rashes Neuro General: patient oriented x3 Extrem Other: Left Knee: + Medial steinmans TTP medial compartment Psych Appearance: grossly normal Affect: normal affect Attitude: cooperative Results Reviewed Results Reviewed: I personally reviewed the MR images. IMPRESSION: 1. Ill-defined undersurface tearing of the posterior horn of the medial meniscus extending to the inner margin and peripheral undersurface of the meniscal body. 2. Mild medial compartment osteoarthritis with a small joint effusion Assessment & Plan Assessment & Plan (1) Tear of medial meniscus of left knee: Code(s): S83.242A - Other tear of medial meniscus, current injury, left knee, initial encounter Category: Medical Plan: This is a 43-year-old gentleman with a medial meniscus tear. He does have some arthritis in that knee and I discussed the relevance of this in regards to surgical outcomes. I discussed the risks, benefits and alternatives including, but not limited to the risk of continued pain, infection, stiffness, medical complications associated with anesthesia. He expressed understanding and we will proceed forward accordingly. Coding Level of Care Code Est Pt Level 4 (35017) Diagnoses Tear of medial meniscus of left knee S83.242A
== END 2024-06-18 11:53 | disposition home or self-care (01) ==
PROVIDERS: PCP Internal Medicine; Visit Provider Orthopaedic Surgery
DX: S83.242A Other tear of medial meniscus, current injury, left knee, initial encounter (principal)
CPT/HCPCS: 99214

== ENCOUNTER → 2024-06-18 11:20 | Outpatient (BNVA) | payer OTHER, SELFPAY | PROVIDERS: PCP Internal Medicine; Visit Provider Orthopaedic Surgery | DX: S83.242D Other tear of medial meniscus, current injury, left knee, subsequent encounter (principal) | CPT/HCPCS: 99212 ==

== ENCOUNTER 2024-07-22 11:10 | Outpatient (AMB) | payer OTHER, SELFPAY ==
--- NOTE | 2024-07-22 11:16 | A.OFFVIS_ITS ---
Vital Signs 07/22/24 11:16 Height 5 ft 11 in Intake Visit Reasons: Pre-Lt Knee 08/11/24 NE Intake Note: Igor 43 year old male who presents today for a preoperative visit for a left knee on 08/11/24 NE. Pain management agreement reviewed and signed. Allergies No Known Allergies Allergy (Verified 07/22/24 11:32) Medication List - Last Reconciled 07/22/24 by Nasrin Kellogg PA-C celecoxib (Celebrex) 200 mg PO BID 30 days hydrocodone-acetaminophen 5-325 mg 1 tab PO Q8H PRN 7 days HPI Comments Details: Mr Umang Villegas presents to the office today for preop visit. He is scheduled for Left knee arthroscopy with Dr. Calderón. he continues to have ongoing pain and difficulty with in the left knee, which is affecting his quality of life; therefore, he has elected to move forward with surgery. 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 Review of Systems Const All systems reviewed & are unremarkable except as noted in HPI and below Physical Exam Const General: cooperative and no acute distress Orientation/consciousness: patient oriented x3 HEENT Head: Yes normal to inspection, Yes normocephalic and Yes atraumatic Eyes General: appearance normal, both eyes and all related structures Neck Neck: Yes normal visual inspection and Yes no lymphadenopathy Resp Effort & Inspection: normal respiratory effort and able to speak in complete sentences Cardio Rate: regular rate Peripheral pulses: Peripheral pulses 2+ throughout GI Inspection: Yes normal to inspection Palpation (GI): Soft to palpation Skin General skin exam: no rashes or lesions noted Neuro General: patient oriented x3 Extrem Other: Left Knee: + Medial steinmans TTP medial compartment Psych Appearance: grossly normal Mental Status: mental status grossly normal Assessment & Plan Assessment & Plan (1) Tear of medial meniscus of left knee: Code(s): S83.242A - Other tear of medial meniscus, current injury, left knee, initial encounter Category: Medical Plan I discussed the extent of the injury to the patient and options available which include surgical intervention. I explained the procedure in detail along with the length of recovery and rehab course. I explained the risk, benefits and alternatives. Risk including, but not limited to infection, blood clots, bleeding, ongoing pain and stiffness. I answered all their questions and with their understanding they have consented to move forward with left knee arthroscopy with Dr Calderón. The patient will be booked accordingly. He has vicodin at home from previous surgery. He has crutches at home from his previous surgery that he will bring with him the day of surgery. Patient Instructions: Scribed for Nasrin Kellogg PA-C, by Ken Carlisle medical secretary teacher, on 07/22/2024 at 11:15 AM EST.? I, Nasrin Kellogg PA-C, have personally reviewed and agree with the information entered by the scribe. Coding Level of Care Code Est Pt Level 3 (18790) Complex EM visit Add On G2211 Diagnoses Tear of medial meniscus of left knee S83.242A
== END 2024-07-22 14:15 | disposition home or self-care (01) ==
PROVIDERS: PCP Internal Medicine; Visit Provider Physician Assistant
DX: S83.242A Other tear of medial meniscus, current injury, left knee, initial encounter (principal)
CPT/HCPCS: 99024

== ENCOUNTER → 2024-07-22 11:10 | Outpatient (BNVA) | payer OTHER, SELFPAY | PROVIDERS: PCP Internal Medicine; Visit Provider Physician Assistant | DX: Z01.818 Encounter for other preprocedural examination (principal); S83.242A Other tear of medial meniscus, current injury, left knee, initial encounter; X58.XXXA Exposure to other specified factors, initial encounter; Y93.9 Activity, unspecified; Y92.9 Unspecified place or not applicable; Y99.9 Unspecified external cause status | CPT/HCPCS: 99212 ==

== ENCOUNTER 2024-08-11 05:43 | Day surgery (SDC) | payer OTHER, SELFPAY ==
[2024-08-09 12:07] VITALS: BMI 32.8
--- NOTE | 2024-08-09 13:33 | P.CONAN_ITS ---
Documented by User: Vivian Pascual NP 08/09/24 13:37 HPI - Anesthesia Eval Consult details Narrative: 43yo M for Left Knee Arthroscopy s/p right knee scope 12/2023 with [facility]-LMA 5 PMFSH Active Problems Active Problems: All Active Problems Tear of medial meniscus of left knee (Acute) Pain of both sacroiliac joints (Acute) Iliotibial band syndrome, right leg (Acute) Trochanteric bursitis, right hip (Acute) Patellofemoral arthritis of right knee (Acute) S/P arthroscopic partial medial meniscectomy of right knee (Acute ~01/14/24) S/P arthroscopic partial lateral meniscectomy of right knee (Acute ~01/14/24) Complex tear of meniscus of right knee (Acute) Osteoarthritis of knees, bilateral (Acute) Tear of meniscus of left knee (Acute) Internal derangement of knee (Acute) Chondromalacia of both patellae (Acute) Past Medical History Medical History Bursitis Osteoarthritis Family History Family history of problems with anesthesia: No Surgical History Surgical History Hx of meniscectomy of right knee H/O left knee surgery History of Problems with Anesthesia: No Social History Social History Patient Tobacco Use Status: Never used Tobacco Have you been hit, kicked, punched, or otherwise hurt by someone within the past year? 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 Allergies Allergy/AdvReac Type Severity Reaction Status Date / Time No Known Allergies Allergy Verified 07/22/24 11:32 Home Medications ?Medication ?Instructions ?Recorded ?Confirmed ?Last Taken ?Type No Known Home Meds 08/11/24 08/11/24 Unknown History Exam Height,Weight and Vital Signs: Height 5 ft 11 in Weight 106.594 kg Assessment and Plan Assessment Anesthesia Assessment: Chart Reviewed Final Anesthetic Review Family History of Problems with Anesthesia: No History of Problems with Anesthesia: No Documented by User: Crystal Diaz MD 08/11/24 08:09 PMFSH Past Medical History Medical History Bursitis Osteoarthritis Surgical History Surgical History Hx of meniscectomy of right knee H/O left knee surgery Social History Social History Patient Tobacco Use Status: Never used Tobacco Have you been hit, kicked, punched, or otherwise hurt by someone within the past year? 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 Allergies Allergy/AdvReac Type Severity Reaction Status Date / Time No Known Allergies Allergy Verified 07/22/24 11:32 Home Medications ?Medication ?Instructions ?Recorded ?Confirmed ?Last Taken ?Type No Known Home Meds 08/11/24 08/11/24 Unknown History Exam Airway Mallampati Class: II TM Dist: >3cm Neck ROM: Full Heart: rrr Lungs: cta Assessment and Plan Assessment Anesthesia Assessment: Anesthesia Plan Discussed Final Anesthetic Review NPO: Yes ASA Class: II Final Preanesthetic Review: No Changes in Pt Med Stat, Meds/Allgs Chart Reviewed, Consent Obtained/Reviewed and Anes Risks/Benef Reviewed Patient Risk: Low Procedure Risk: Low Anesthetic Plan Anesthetic Plan: GA Disposition: Standard PACU
[2024-08-11] VITALS (8 sets, daily range): BP systolic 100–141; BP diastolic 57–67; PULSE 53–70; RESP 14–20; TEMP 36.1–36.9; O2SAT 97–98; BMI 33.0
[2024-08-11] MEDS: Lactated Ringers 1,000 ML 100 ML IVCONT (06:27)
--- NOTE | 2024-08-11 07:28 | MHC.SHP ---
Pre-Procedural Eval Section A - 24 Hr Update-Section A only Date of Service: 08/11/24 The patient is an INPATIENT: No Changes since office visit: No Cold of Flu in the past 2 weeks, No New Medical Problems, No Changes in Medication and No Patient answered all questions The patient has been examined within 24 hours of the surgical procedure. The History & Physical has been completed within 30 days and I have reviewed it.: Yes Section B - Complete if H&P > 30 days Chief Complaint: Other tear of medial meniscus, current injury, Allergies: Allergies Allergy/AdvReac Type Severity Reaction Status Date / Time No Known Allergies Allergy Verified 07/22/24 11:32 Plan I have reviewed the history and physical and performed a pertinent physical examination on my patient. No changes have occurred unless specified. Time Spent With Patient Time: Total time managing care of this patient today ____ minutes.
--- NOTE | 2024-08-11 08:13 | P.BOP_ITS ---
Brief Operative Note Date of Service: 08/11/24 Pre-op diagnosis: left MMT Post-op diagnosis: same Procedure: Left partial medial meniscectomy Implants: none Surgeon: Ruddy Calderón MD Anesthesia: GLMA and local Was an Measurement And Verification Engineer used for this Procedure?: No Estimated blood loss (mL): 5 Tourniquet time (min): 12 Pathology: none sent Condition: stable Disposition: PACU
[2024-08-11] MEDS: oxyCODONE HCl Immed Release 5 MG TABLET PO (08:45)
[2024-08-11] MEDS: fentaNYL citrate/PF 100 MCG/2 ML VIAL 25 MCG IVPUSH (08:45)
--- NOTE | 2024-08-11 14:58 | P.OP_ITS ---
Operative Note Operative Note Date of Service: 08/11/24 Narrative: Date of Service: 08/11/24 Pre-op diagnosis: left MMT Post-op diagnosis: same Procedure: Left partial medial meniscectomy Implants: none Surgeon: Ruddy Calderón MD Anesthesia: GLMA and local Was an Welt Insole Channeler used for this Procedure?: No Estimated blood loss (mL): 5 Tourniquet time (min): 12 Pathology: none sent Condition: stable Disposition: PACU Procedure in detail: Patient was brought to the operating room placed supine on the arthroscopic table and prepped and draped in standard sterile fashion. A time-out was called to identify proper site proper procedure proper surgeon and IV antibiotics per weight were administered. I began by exsanguinating the limb and insufflating tourniquet to 300 mm Hg. Then made a standard anterolateral stab incision. The knee was insufflated with water and 30 degree arthroscope was placed. There was grade 0 fibrillations of the patella and the suprapatellar pouch and the gutters were clean. I descended into the medial compartment where I made my medial portal under direct visualization. There was a complex tear of the posterior horn of the medial meniscus. The root was intact and there was grade 0 changes in the medial compartment. I used a combination of biter shaver and cautery to remove unstable portions of the meniscus. Approximately 30% meniscal volume was removed. Once I was satisfied with this the ACL was examined and found to be intact and the lateral compartment also was without the need for intervention. I then removed all instrumentation and closed the portals with skin glue. 25 mL of 2% Marcaine with epinephrine was injected into the joint and the surrounding soft tissues. Patient was then placed in sterile dressing extubated brought recovery room stable condition. There were no known complications.
== END 2024-08-11 09:29 | disposition home or self-care (01) ==
LOC: HO.SSS 05:44
PROVIDERS: PCP Internal Medicine; Visit Provider Orthopaedic Surgery
PROC: (CPT 29870; principal; 2024-08-11 07:30)
DX: S83.232A Complex tear of medial meniscus, current injury, left knee, initial encounter (principal); X58.XXXA Exposure to other specified factors, initial encounter; Y93.9 Activity, unspecified; Y92.9 Unspecified place or not applicable; Y99.8 Other external cause status; M17.0 Bilateral primary osteoarthritis of knee; M71.551 Other bursitis, not elsewhere classified, right hip; M19.90 Unspecified osteoarthritis, unspecified site; Z98.890 Other specified postprocedural states
CPT/HCPCS: 29881; J0131; J0171; J0690; J1100; J1885; J2405; J2704; J2795; J3010

== ENCOUNTER → 2024-08-11 05:43 | Outpatient (BNV) | payer OTHER, SELFPAY | PROVIDERS: PCP Internal Medicine; Visit Provider Orthopaedic Surgery | DX: S83.232A Complex tear of medial meniscus, current injury, left knee, initial encounter (principal) | CPT/HCPCS: 29881 ==

== ENCOUNTER 2024-08-19 14:55 | Outpatient (AMB) | payer OTHER, SELFPAY ==
--- NOTE | 2024-08-19 15:12 | A.OFFVIS_ITS ---
Intake Visit Reasons: PO-Lt Knee 08/11/24 NE Intake Note: Estiven is a 43 year old male who presents today for a post op appointment s/p Lt Knee 08/11/24 NE. Patient reports that he is doing ok, he still hs some pain but is doing better, he has been having trouble sleeping at night. Allergies No Known Allergies Allergy (Verified 08/19/24 15:15) HPI HPI PO-Lt Knee 08/11/24 NE: Details: 43-year-old male who presents in the office today for a 8 days status post partial left medial meniscectomy which was performed on 08/11/[address] Calderón. While in the office today, the patient states he is doing right; however, he still has mild pain which has been improving. He reports experiencing difficulty sleeping at night. 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 Sutures are intact. No surrounding erythema or drainage. No signs of infection. ROM is 0-110 degrees. NVI. Assessment & Plan Assessment & Plan (1) Status post arthroscopic partial medial meniscectomy of left knee: Code(s): Z98.890 - Other specified postprocedural states; Z87.828 - Personal history of other (healed) physical injury and trauma Category: Surgical Plan Mr. Umang Villegas is a 43-year-old male who presents in the office today for a 8 days status post partial left medial meniscectomy which was performed on 08/11/[address] Calderón. While in the office today, the patient states he is doing right; however, he still has mild pain which has been improving. He reports experiencing difficulty sleeping at night. The patient was encouraged to wean back into normal activities as tolerated. Follow up will be PRN, or sooner if needed. Patient Instructions: Scribed by Valencia Bo electromedical equipment technician, for Latoya Vann PA-C on 08/19/24 at 3:24 pm EST. Coding Level of Care Code Global (10008) Diagnoses Status post arthroscopic partial medial meniscectomy of left knee Z98.890; Z87.828
== END 2024-08-19 15:41 | disposition home or self-care (01) ==
PROVIDERS: PCP Internal Medicine; Visit Provider Physician Assistant
DX: Z98.890 Other specified postprocedural states (principal); Z87.828 Personal history of other (healed) physical injury and trauma
CPT/HCPCS: 99024

== ENCOUNTER → 2024-08-19 14:55 | Outpatient (BNVA) | payer OTHER, SELFPAY | PROVIDERS: PCP Internal Medicine; Visit Provider Physician Assistant | DX: Z47.89 Encounter for other orthopedic aftercare (principal); Z98.890 Other specified postprocedural states; Z87.828 Personal history of other (healed) physical injury and trauma | CPT/HCPCS: 99212 ==

== ENCOUNTER 2024-08-25 09:36 | Outpatient (REF) | payer OTHER, SELFPAY ==
[2024-08-25 11:09] LABS: Cholesterol 175 mg/dL (<200); HDL Cholesterol 37 mg/dL (>40); LDL Cholesterol Calculated 111 mg/dL (<100); Triglycerides 138 mg/dL (<150)
== END 2024-08-25 09:37 | disposition home or self-care (01) ==
LOC: HO.LAB 09:36
PROVIDERS: PCP Internal Medicine; Visit Provider Internal Medicine
DX: E78.2 Mixed hyperlipidemia (principal)
CPT/HCPCS: 36415; 80061

== ENCOUNTER 2024-10-21 10:34 | Outpatient (AMB) | payer OTHER, SELFPAY ==
--- NOTE | 2024-10-21 10:39 | MHC.OFFVIS ---
Intake Visit Reasons: PO - Lt Knee 08/11/24 NE (wound check) Intake Note: Estiven is a 44 year old male who presents today for a wound check s/p left knee 08/11/24 NE. Patient reports about 2 weeks ago he was feeling more pain on the interior and medial side of the knee. He mentions that he noticed having a lil rash on the incision sites Allergies No Known Allergies Allergy (Verified 10/21/24 10:41) HPI HPI PO - Lt Knee 08/11/24 NE (wound check): Details: 44-year-old male who presents in the office today 2 months left knee arthroscopy, which was performed on 08/11/[address] Calderón. I last saw the patient in the office on 08/19/24 when he reported having mild left knee pain that has been improving. He was encouraged to wean back into normal activities as tolerated. While in the office today, the patient reports he experienced severe pain on the interior and medial side of the left knee 2 weeks ago. He mentions that he noticed a small rash on the incision site. 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 No surrounding erythema or drainage. No signs of infection. Normal to inspection. No tenderness to palpation along the medial or lateral joint lines. Full knee extension and flexion. Negative Yasmani's. Negative anterior drawer. NVI. Assessment & Plan Assessment & Plan (1) Status post arthroscopic partial medial meniscectomy of left knee: Code(s): Z98.890 - Other specified postprocedural states; Z87.828 - Personal history of other (healed) physical injury and trauma Category: Surgical Plan Mr. Umang Villegas is a 44-year-old male who presents in the office today 2 months left knee arthroscopy, which was performed on 08/11/[address] Calderón. I last saw the patient in the office on 08/19/24 when he reported having mild left knee pain that has been improving. He was encouraged to wean back into normal activities as tolerated. While in the office today, the patient reports he experienced severe pain on the interior and medial side of the left knee 2 weeks ago. He mentions that he noticed a small rash on the incision site. The incision sites were examined while in the office today and noted to have no signs of infections. Follow-up will be PRN, or sooner if needed. Patient Instructions: Scribed by Valencia Bo medical management trainer, for Latoya Vann PA-C on 10/21/24 at 11:59 am EST. Coding Level of Care Code Global (08077) Diagnoses Status post arthroscopic partial medial meniscectomy of left knee Z98.890; Z87.828
== END 2024-10-21 11:05 | disposition home or self-care (01) ==
PROVIDERS: PCP Internal Medicine; Visit Provider Physician Assistant
DX: Z98.890 Other specified postprocedural states (principal); Z87.828 Personal history of other (healed) physical injury and trauma
CPT/HCPCS: 99024

== ENCOUNTER → 2024-10-21 10:34 | Outpatient (BNVA) | payer OTHER, SELFPAY | PROVIDERS: PCP Internal Medicine; Visit Provider Physician Assistant | DX: Z98.890 Other specified postprocedural states (principal); Z87.828 Personal history of other (healed) physical injury and trauma | CPT/HCPCS: 99212 ==

== ENCOUNTER 2024-11-08 09:33 | Outpatient (AMB) | payer OTHER, SELFPAY ==
--- NOTE | 2024-11-08 09:47 | MHC.OFFVIS ---
Intake Visit Reasons: PO-Lt Knee 08/11/24 NE-swelling Intake Note: Estiven is a 44 year old male who presents today for a wound check s/p left knee 08/11/24 NE. Patient reports he is feeling a bit better since he got inserts for his shoes. However he still has constant pain on the medial aspect of the knee. Allergies No Known Allergies Allergy (Verified 11/08/24 09:51) HPI HPI PO-Lt Knee 08/11/24 NE-swelling: Details: 44-year-old male who presents in the office today for a 3 months status post left knee arthroscopy, which was performed on 08/11/[address] Calderón. I last saw the patient in the office on 10/21/24, when incision sites were examined and noted to have no signs of infection. While in the office today, the patient presents today for a wound check. He reports constant pain on the medial aspect of the left knee. However, he mentions mild improvement in his symptoms since he has got his inserts for his shoes. 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 No ecchymosis, erythema, or joint effusion. Full range of motion. NVI. Assessment & Plan Assessment & Plan (1) Status post arthroscopic partial medial meniscectomy of left knee: Code(s): Z98.890 - Other specified postprocedural states; Z87.828 - Personal history of other (healed) physical injury and trauma Category: Surgical Plan Mr. Umang Villegas is a 44-year-old male who presents in the office today for a 3 months status post left knee arthroscopy, which was performed on 08/11/[address] Calderón. I last saw the patient in the office on 10/21/24, when incision sites were examined and noted to have no signs of infection. While in the office today, the patient presents today for a wound check. He reports constant pain on the medial aspect of the left knee. However, he mentions mild improvement in his symptoms since he has got his inserts for his shoes. The patient complains intermittent pain in the bilateral knees. He reports that he feels having a leg length imbalance. He also mentions that he has used shoe inserts in the past, which does seem to help his knee pain. Therefore, I will place an order for custom inserts for bilateral feet. He can obtain inserts at [facility] in [place]. I would also recommend the cancer registry manager to obtain a measurement for a leg length discrepancy and provide a heel lift as necessary. I have also placed an order for physical therapy to work on glute, core and quad strengthening as well as gait training. Follow-up will be PRN, or sooner if needed. Orders: Orders PT Evaluation and Treatment 11/08/24 M17.0 - Bilateral primary osteoarthritis of knee, M23.90 - Unspecified internal derangement of unspecified knee, S83.203A - Other tear of unspecified meniscus, current injury, right knee, initial encounter Medications: New [Custome shoe inserts] As directed Measure for a leg length discrepicy prive a heel lift as necessary 1 ea 0RF Knee pain [Custome shoe inserts] As directed Measure for a leg length discrepicy prive a heel lift as necessary 1 ea 0RF Knee pain Patient Instructions: Scribed by Valencia Bo medical insurance collector, for Latoya Vann PA-C on 11/08/24 at 10:40 am EST. Coding Level of Care Code Est Pt Level 3 (17483) Diagnoses Status post arthroscopic partial medial meniscectomy of left knee Z98.890; Z87.828
== END 2024-11-08 10:05 | disposition home or self-care (01) ==
PROVIDERS: PCP Internal Medicine; Visit Provider Physician Assistant
DX: Z98.890 Other specified postprocedural states (principal); Z87.828 Personal history of other (healed) physical injury and trauma
CPT/HCPCS: 99024

== ENCOUNTER → 2024-11-08 09:33 | Outpatient (BNVA) | payer OTHER, SELFPAY | PROVIDERS: PCP Internal Medicine; Visit Provider Physician Assistant | DX: Z98.890 Other specified postprocedural states (principal); Z87.828 Personal history of other (healed) physical injury and trauma | CPT/HCPCS: 99212 ==